=== PATIENT | male | born 1945 | race Caucasian/White ===

== ENCOUNTER → 2021-02-26 01:55 | Outpatient (CLI) | payer MEDICARE, SELFPAY ==
[2021-02-26 20:13] LABS: SARS-CoV-2 RNA PCR Negative
== END ==
PROVIDERS: PCP Internal Medicine; Visit Provider Internal Medicine Gastroenterology
DX: Z01.812 Encounter for preprocedural laboratory examination (principal); Z20.822 Contact with and (suspected) exposure to COVID-19
CPT/HCPCS: C9803; U0003; U0005

== ENCOUNTER 2021-03-01 01:51 | Day surgery (SDC) | payer MEDICARE, SELFPAY ==
[2021-02-16 12:16] VITALS: BMI 38.0
[2021-03-01 08:25] VITALS: BP 179/81; PULSE 63; RESP 18; TEMP 36.2; O2SAT 100; BMI 36.1
--- NOTE | 2021-03-01 08:32 | WPDANESEPPF ---
Anes - Initial Pre Proc Eval Procedure: Operation Date: 03/01/21 09:30 Proposed Procedures p Screening Colonoscopy - Abad Wise MD Date/Time: 03/01/21 08:32 Surgeon: Abad Wise MD Pre Op Diagnosis: hx of colon polyps Patient Data Age: 75 Gender: M Height: 1.8 m Weight: 117.5 kg Last Vital Signs Temp 36.2 C L 03/01/21 08:25 Pulse 63 03/01/21 08:25 Resp 18 03/01/21 08:25 BP 179/81 H 03/01/21 08:25 Pulse Ox 100 03/01/21 08:25 Allergies Allergy/AdvReac Type Severity Reaction Status Date / Time No Known Allergies Allergy Unknown Verified 03/01/21 08:20 Home Medications Medication Instructions Recorded Confirmed Type aspirin 81 mg tablet,delayed 81 mg PO DAILY 06/21/20 02/16/21 History release atorvastatin 80 mg tablet 80 mg PO HS 06/21/20 02/16/21 History carvedilol 25 mg tablet 25 mg PO QAM 06/21/20 02/16/21 History finasteride 5 mg tablet 5 mg PO DAILY 06/21/20 02/16/21 History furosemide 40 mg tablet 40 mg PO QAM 06/21/20 02/16/21 History insulin glargine 100 unit/mL (3 45 unit SUB-Q QPM 06/21/20 02/16/21 History mL) subcutaneous pen insulin lispro 100 unit/mL 5 unit SUB-Q BIDWMEAL 06/21/20 02/16/21 History subcutaneous cartridge metformin 1,000 mg tablet 1,000 mg PO BID 06/21/20 02/16/21 History amlodipine-benazepril 1 cap PO DAILY 02/16/21 02/16/21 History carvedilol 12.5 mg PO QPM 02/16/21 02/16/21 History empagliflozin [Jardiance] 25 mg PO DAILY 02/16/21 02/16/21 History ezetimibe 10 mg PO DAILY 02/16/21 02/16/21 History lorazepam 1 mg PO TID PRN 02/16/21 02/16/21 History Patient hx anesthesia problems: none Family hx anesthesia problems: none [facility] Past Medical History Medical History (Updated 03/01/21 @ 08:34 by Selvin Mcguire MD) Arthritis, lumbar spine Bilateral hip joint arthritis BPH (benign prostatic hyperplasia) Coronary artery disease Diabetes last A1C 03/21/20 6.4 Hyperlipidemia Hypertension JESSICA (obstructive sleep apnea) Osteoarthritis of left knee Skin cancer Trochanteric bursitis, left hip Surgical History Surgical History H/O knee surgery left knee arthroscopy; right knee replacement 2009 H/O shoulder surgery bilateral rotator cuff repairs Family History Family History Father Family history of glaucoma Cerebrovascular accident Mother Family history of cataracts Family history of diabetes mellitus in first degree relative Family history of hearing loss Sibling Family history of arthritis Family history of diabetes mellitus in first degree relative Social History Social History Smoking status: Never smoker Alcohol intake: current Substance use: never Living arrangements: with family Gender identity (if verbalized by the patient): Male Spiritual care concerns: No Anes - Eval Final PreProcedure Day of Procedure 03/01/21 08:32 Patient weight: obese Heart: regular rate and rhythm Lungs: clear to auscultation and normal air movement Airway: Mallampati scale class II Neurological: alert and oriented Last oral intake: >/= 8 hours ASA classification: III Emergent: no Anesthetic plan: proceed Anesthesia type and monitoring: general GIVS Informed Consent: The patient's anesthetic plan and its attendant risks and benefits were discussed with the patient/family/POA. Questions were solicited and answers provided to the satisfaction of the patient/family/POA.
[2021-03-01 08:39] LABS: Glucose Point of Care 95 (65-105)
[2021-03-01] MEDS: LACTATED RINGERS 1,000 ML 150 ML IV CONT (08:51)
--- NOTE | 2021-03-01 08:52 | PM.HPGS ---
History of Present Illness History of Present Illness Consent: Risks, benefits, and alternatives have been discussed and questions answered. Patient agrees to proceed with procedure. Chief complaint: hx of colon polyps Narrative: Hans Cummings Jr. is a 75 year old male . He is here for colon cancer screening. He has had polyps removed in the past Review of Systems Review of Systems: All systems reviewed & are unremarkable except as noted in HPI and below PMFSH Past Medical History Medical History Arthritis, lumbar spine Bilateral hip joint arthritis BPH (benign prostatic hyperplasia) Coronary artery disease Diabetes last A1C 03/21/20 6.4 Hyperlipidemia Hypertension JESSICA (obstructive sleep apnea) Osteoarthritis of left knee Skin cancer Trochanteric bursitis, left hip Surgical History Surgical History H/O knee surgery left knee arthroscopy; right knee replacement 2009 H/O shoulder surgery bilateral rotator cuff repairs Family History Family History Father Family history of glaucoma Cerebrovascular accident Mother Family history of cataracts Family history of diabetes mellitus in first degree relative Family history of hearing loss Sibling Family history of arthritis Family history of diabetes mellitus in first degree relative Social History Social History Smoking status: Never smoker Alcohol intake: current Substance use: never Living arrangements: with family Gender identity (if verbalized by the patient): Male Spiritual care concerns: No Meds Home Medications and Allergies Home Medications Medication Instructions Recorded Confirmed Type aspirin 81 mg tablet,delayed 81 mg PO DAILY 06/21/20 02/16/21 History release atorvastatin 80 mg tablet 80 mg PO HS 06/21/20 02/16/21 History carvedilol 25 mg tablet 25 mg PO QAM 06/21/20 02/16/21 History finasteride 5 mg tablet 5 mg PO DAILY 06/21/20 02/16/21 History furosemide 40 mg tablet 40 mg PO QAM 06/21/20 02/16/21 History insulin glargine 100 unit/mL (3 45 unit SUB-Q QPM 06/21/20 02/16/21 History mL) subcutaneous pen insulin lispro 100 unit/mL 5 unit SUB-Q BIDWMEAL 06/21/20 02/16/21 History subcutaneous cartridge metformin 1,000 mg tablet 1,000 mg PO BID 06/21/20 02/16/21 History amlodipine-benazepril 1 cap PO DAILY 02/16/21 02/16/21 History carvedilol 12.5 mg PO QPM 02/16/21 02/16/21 History empagliflozin [Jardiance] 25 mg PO DAILY 02/16/21 02/16/21 History ezetimibe 10 mg PO DAILY 02/16/21 02/16/21 History lorazepam 1 mg PO TID PRN 02/16/21 02/16/21 History Allergies Allergy/AdvReac Type Severity Reaction Status Date / Time No Known Allergies Allergy Unknown Verified 03/01/21 08:20 Vital Signs Vital Signs - 24 hr 03/01/21 08:25 Temperature 36.2 C L Pulse Rate 63 Respiratory Rate 18 Blood Pressure 179/81 H Pulse Oximetry 100 Exam Const: General: alert Orientation/consciousness: patient oriented x3 Resp: Auscultation: clear to auscultation bilaterally Cardio: Rhythm: regular rhythm GI: GI Palp: Yes Soft to palpation and No Tenderness to palpation present (GI) Neuro: General: patient oriented x3 Assessment and Plan Assessment and plan (1) Colon cancer screening: Code(s): Z12.11 - Encounter for screening for malignant neoplasm of colon Status: Acute Assessment and Plan: Colonoscopy with possible biopsy or polypectomy or cautery or injection of substances.
[2021-03-01 09:36] VITALS: BP 120/65; PULSE 41; RESP 18; O2SAT 97
[2021-03-01 09:46] VITALS: BP 141/71; PULSE 55; RESP 15; O2SAT 97
[2021-03-01 09:55] LABS: Glucose Point of Care 80 (65-105)
[2021-03-01 09:56] VITALS: BP 127/66; PULSE 51; RESP 22; O2SAT 97
== END 2021-03-01 10:10 | disposition home or self-care (01) ==
PROVIDERS: PCP Internal Medicine; Visit Provider Internal Medicine Gastroenterology
PROC: 0DJD8ZZ Inspection of Lower Intestinal Tract, Via Natural or Artificial Opening Endoscopic (ICD-10-PCS; CPT 45378; principal; 2021-03-01 09:30)
DX: Z12.11 Encounter for screening for malignant neoplasm of colon (principal); K62.1 Rectal polyp; K57.30 Diverticulosis of large intestine without perforation or abscess without bleeding; I10 Essential (primary) hypertension; I25.10 Atherosclerotic heart disease of native coronary artery without angina pectoris; E78.5 Hyperlipidemia, unspecified; E11.9 Type 2 diabetes mellitus without complications; G47.33 Obstructive sleep apnea (adult) (pediatric); N40.0 Benign prostatic hyperplasia without lower urinary tract symptoms; Z79.84 Long term (current) use of oral hypoglycemic drugs; Z79.4 Long term (current) use of insulin; E66.9 Obesity, unspecified; Z68.36 Body mass index [BMI] 36.0-36.9, adult
CPT/HCPCS: 45380; 88305; C9803; J2704; J7120; U0003; U0005

== ENCOUNTER → 2023-04-11 08:15 | Outpatient (CLI) | payer MEDICARE, SELFPAY ==
--- NOTE | ~2023-04-11 | MR_ITS ---
MRI of the lumbar spine Clinical History: Back pain Technique: Axial T2-weighted images, and sagittal T1-weighted, T2-weighted, and T2 fat-sat images wer e acquired. Findings: No fracture identified. 8 mm anterolisthesis of L4 over L5 is present. No suspicious bone m arrow signal abnormality seen. At L1-L2, there is no disc bulge or herniation. There is mild facet joint hypertrophy. No spinal jayla l stenosis or neural foraminal narrowing. At L2-L3, there is minimal disc bulge and mild facet arthropathy. No spinal canal stenosis or neural foraminal narrowing. At L3-L4, there is mild disc bulge and mild facet arthropathy. There is moderate thecal sac compressi on, predominantly due to prominent epidural fat. Bilateral neural foramina are preserved. At L4-L5, disc bulge/uncovering and severe facet arthropathy result in severe spinal canal stenosis/t hecal sac compression. There is severe left neural foraminal narrowing. There is minimal right neural foraminal narrowing. At L5-S1, there is left foraminal disc bulge. There is mild facet arthropathy. No spinal canal stenos is. Bilateral neural foramina are preserved. Paravertebral soft tissues are unremarkable. Impression: Severe degenerative spondylosis at L4-L5, as detailed above. Moderate thecal sac compression L3-4 which is predominantly related to prominent epidural fat rather than degenerative change. Additional mild degenerative changes, as above. Reviewed, dictated and finalized at [facility]. Impression: Severe degenerative spondylosis at L4-L5, as detailed above. Moderate thecal sac compression L3-4 which is predominantly related to prominen t epidural fat rather than degenerative change. Additional mild degenerative changes, as above.
== END ==
PROVIDERS: PCP Internal Medicine; Visit Provider Internal Medicine
DX: M47.896 Other spondylosis, lumbar region (principal)
CPT/HCPCS: 72148

== ENCOUNTER → 2023-07-31 10:37 | Outpatient (CLI) | payer MEDICARE, SELFPAY ==
--- NOTE | ~2023-07-31 | XR_ITS ---
EXAMINATION: XR lumbar spine min 4V DATE: 07/31/2023 11:11 INDICATION: Spondylolisthesis, low back pain TECHNIQUE: Anteroposterior and lateral in neutral, flexion and extension views of the lumbar spine, a nd cone-down lateral view of the lumbosacral junction were obtained. COMPARISON: MRI, 04/11/2023 FINDINGS: There are 8 mm of anterolisthesis of L4 on L5. No hypermobility is present with flexion or extension. There is moderate loss of intervertebral disc space height at L4-5 and mild loss of interv ertebral disc space height throughout the remainder of the lumbar spine. The vertebral body heights a re maintained. There is no fracture. Small degenerative osteophytes project from the anterior endplat es of multiple vertebral bodies. Calcified atherosclerosis is noted. IMPRESSION: 1. Unchanged severe lumbar spondylosis at L4-5. Reviewed, dictated and finalized at location [facility].
== END ==
PROVIDERS: PCP Neurological Surgery; Visit Provider Neurological Surgery
DX: M43.16 Spondylolisthesis, lumbar region (principal); M47.816 Spondylosis without myelopathy or radiculopathy, lumbar region
CPT/HCPCS: 72110

== ENCOUNTER 2025-06-10 07:40 | Outpatient (CLI) | payer MEDICARE, SELFPAY ==
--- NOTE | ~2025-06-10 | MR_ITS ---
MRI of the lumbar spine Clinical History: Spinal stenosis Technique: Axial T2-weighted images, and sagittal T1-weighted, T2-weighted, and T2 fat-sat images wer e acquired. COMPARISON: 04/11/2023 Findings: Status post interval posterior and interbody fusion from L4 to L5. No acute fracture. There is underlying 7 mm anterolisthesis of L4 over L5. There is probable nonspecific amorphous marrow clementina ma throughout the L4 and L5 vertebral bodies, presumably reactive. At L1-L2, there is no disc bulge or herniation. There is mild facet hypertrophy. No spinal canal sten osis or neural foraminal narrowing. At L2-L3, there is mild disc bulge with mild facet arthropathy. No central canal stenosis or neural f oraminal narrowing. L3-L4, there is mild to moderate degenerative disc narrowing. There is diffuse disc bulge with modera te facet arthropathy. There is severe spinal canal stenosis/thecal sac compression, with focally prom inent posterior epidural fat also present. There is moderate to severe right neural foraminal narrowi ng, and moderate left neural foraminal narrowing. At L4-L5, there is posterior decompression. No spinal canal stenosis. There is moderate left neural f oraminal narrowing. Right neural foramen preserved. At L5-S1, there is mild disc bulge and moderate facet arthropathy. No central canal stenosis or defin ite neural foraminal narrowing. Probable postoperative seroma in the posterior paravertebral soft tissues at the L4-L5 level with mul tiple septations measuring 3.3 x 1.9 x 1.7 cm. Impression: Interval posterior and interbody fusion from L4 to L5 with underlying 7 mm anterolisthesis of L4 over L5. Severe degenerative spondylosis at L3-L4, as detailed above. 3.3 x 1.9 x 1.7 cm postoperative seroma in the posterior paravertebral soft tissues at the L4-L5 leve l. Reviewed, dictated and finalized at location . Impression: Interval posterior and interbody fusion from L4 to L5 with underlying 7 mm ante rolisthesis of L4 over L5. Severe degenerative spondylosis at L3-L4, as detailed above. 3.3 x 1.9 x 1.7 cm postoperative seroma in the posterior paravertebral soft tis sues at the L4-L5 level.
--- OUTSIDE RECORDS SUMMARY | 2025-06-10 07:45 | XMS_ITS | Data Portability ---
Author Organization [place] [facility] [employer], Main Office Address [address] [place] [address] Assessment No assessment recorded. Plan of Treatment Reminders Order Date Submit Date Provider Last Modified By Organization Details Last Modified Time Details Appointments None recorded. Lab vitamin B12 + folate, serum or blood 025 025 [email or web address] [facility], [address], [address] Gallardo, [place], [address], 5 12:12:52 HbA1c (hemoglob in A1c), blood 025 025 [facility], [address], [address] Gallardo, [place], [address], 5 12:12:52 lipid panel, serum 025 025 [facility], [address], [address] Gallardo, [place], [address], 5 12:12:51 CMP, serum or plasma 025 025 [email or web address] [facility], [address], [place], [address], 5 12:12:51 CBC w/ auto diff 025 025 CURLY [facility], [address], [place], [address], 5 11:55:56 HbA1c (hemoglob in A1c), blood 025 025 [email or web address] [facility], [address], [address]ardo, [place], [address], 5 13:52:41 microalbu min, urine 025 [facility], [address], [address]ardo, [place], [address], 5 13:59:59 lipid panel, serum 025 [facility], [address], [address]ardo, [place], [address], 5 13:07:58 CMP, serum or plasma 025 [facility], [address], [address]ardo, [place], [address], 5 13:08:02 CBC w/ auto diff 025 [facility], [address], [address]ardo, [place], [address], 5 12:58:27 HbA1c (hemoglob in A1c), blood 024 [facility], [address], [address]ardo, [place], [address], 4 09:09:42 lipid panel, serum 024 [facility], [address], [address]ardo, [place], [address], 4 09:09:40 PSA, serum or plasma 024 [facility], [address], [address]ardo, [place], [address], 4 09:09:41 Referral None recorded. Procedures None recorded. Surgeries None recorded. Imaging None recorded. Medication Orders None recorded. Patient TargetsNo targets recorded. Patient Instructions Encounter Date Encounter Id Patient Instructions Last Modified By Organization Details Last Modified Time 03/24/2024 [id number] Follow-up hypertension, hyperlipidemia, type 2 diabetes and obesity class one all clinically stable. Will continue on current Rx. Will check a lipid panel and hemoglobin A1c. Also needs a PSA done. Otherwise is doing well at this time will continue on current Rx and follow-up in four months. FDA recommendations of a influenza, RSV, COVID, pneumococcal immunizations strongly advised. Next Appointment: 4 Months Approximate Date: 07/22/2024 Portions of the record may have been created with voice recognition software. Occasional wrong-word or [id number] substitutions may have occurred due to the inherent limitations of voice recognition software. Read the chart carefully and recognize, using context, where substitutions have occurred. Not available 03/24/2024 11:09:34 04/21/2024 [id number] Soft tissue trau ma the left shoulder and left ribcage. This time since the patient has had shown progressive improvement will continue observation. Instructed to let us know if the pain gets worse or any acute onset of any shortness of breath etc.. Keep Appointment: Fri 10:20 AM [place] Portions of the record may have been created with voice recognition software. Occasional wrong-word or ajezz-u-czfo substitutions may have occurred due to the inherent limitations of voice recognition software. Read the chart carefully and recognize, using context, where substitutions have occurred. [email or web address] Not available 04/21/2024 15:46:36 07/28/2024 [id number] dementia rating scale-2* [email or web address] Not available 07/28/2024 11:29:34 alcohol misuse* [email or web address] Not available 07/28/2024 11:29:34 depression screening* [email or web address] Not available 07/28/2024 11:29:34 Timed Up and Go test (TUG)* [email or web address] Not available 07/28/2024 11:29:34 multi-dimensiona l health assessment questionnaire* [email or web address] Not available 07/28/2024 11:29:34 Personalized a lt Plan and Screening Recommendations Advance Directives - Do you have one? Yes Advance Directives - Do we have your advance directive on file in your health record? Primary Prevention/Interven tion (prevents or decreases the chance of common diseases from occurring) Smoking Risk: Non Smoker Alcohol Misuse Screening: Negative Weight: Overweight try to lose 10% of your body weight Physical activity: Need more exercise/physical activity Nutrition: Average Eat heart healthy diet Fall Risk (screened today): Intermediate Recommend regular use of cane or walker Vaccines Pneumococcal: No further needed Influenza: Your next one in the fall of this year Chronic Disease Risks Stroke: Intermediate Risk Active diagnosis, Continue current treatment plan Heart Attack: Intermediate Risk Active diagnosis, Continue current treatment plan Clogging of the Arteries: Intermediate Risk Active diagnosis, Continue current treatment plan Diabetes: Intermediate Risk Active diagnosis, Continue current treatment plan Secondary Prevention/Interven tion (detects treatable diseases before they may cause symptoms, disability, or ) Prostate Cancer Screening: up to date Colon Cancer Screening: Colonoscopy due 2025 Date Screening Last Performed: _2020___ Eye Disease Screening: Your next exam in: goes every 2 yrs Dementia Risk: Low I have no recommendations Depression Screening: Negative I have no recommendations [email or web address] Not available 07/28/2024 11:22:36 Medicare wellnes s evaluation risk assessment stable. Follow-up for essential hypertension, hyperlipidemia, type 2 diabetes and history of colon polyps. Also obesity class one all clinically stable last hemoglobin A1c just done at [facility] was 6.8. Overall seems to be doing well. No interval complaints any new problems. Does not need any blood drawn at this time. Will continue on current Rx and follow-up in four months. Next Appointment: 4 Months Approximate Date: 11/25/2024 Portions of the record may have been created with voice recognition software. Occasional wrong-word or sjmti-f-aodo substitutions may have occurred due to the inherent limitations of voice recognition software. Read the chart carefully and recognize, using context, where substitutions have occurred. [email or web address] Not available 07/28/2024 11:29:10 12/22/2024 [id number] Essential hypertension, hyperlipidemia, type 2 diabetes, sleep apnea and obesity class one. Check blood work consisting of CBC, CMP, lipid and hemoglobin A1c level. Has had some increase in musculoskeletal complaints both in hip and back pain. Instructed to let us know if this continues to increase may need orthopedic referral particularly for the hip pain. Continue on current Rx follow-up four months Follow Up: 4 Months Approximate Date: 04/21/2025 Portions of the record may have been created with voice recognition software. Occasional wrong-word or dfmys-s-anfp substitutions may have occurred due to the inherent limitations of voice recognition software. Read the chart carefully and recognize, using context, where substitutions have occurred. Created: Jaiden Andrea M.D. 12.22.2024 10:14 AM [email or web address] Not available 12/22/2024 11:14:39 04/27/2025 [id number] Essential hypertension, hypercholesterolemi a, type 2 diabetes, diabetic peripheral neuropathy and obesity class one. Plan is check blood work consisting of CBC, CMP, lipid and hemoglobin A1c level. Will also check a PSA. Will set up with Urology for the urinary incontinence. Will also set up for physical therapy for gait training and balance instruction. Additional Orders - Directives - Recommendations 1. Urology consult for urinary incontinence 2. Set up for MRI of the lumbar spine without contrast for spinal stenosis and urinary incontinence. 3. Additional Orders - Directives - Recommendations 1. Physical therapy for gait training and balance therapy. Secondary to peripheral neuropathy Follow Up: 4 Months Approximate Date: 08/25/2025 Portions of record are template driven. When necessary additional context will be provided. Additionally some portions have been created with voice recognition software. Occasional wrong-word or ptqcq-s-zpya substitutions may have occurred due to the inherent limitations of voice recognition software. Read the chart carefully and recognize, using context, where substitutions may have occurred. Created: Jaiden Andrea M.D. 04.27.2025 10:18 AM [email or web address] Not available 04/27/2025 11:18:57 Reason for Referral None Reported. Results Created Date Observation Date Name Description Value Unit Range Abnormal Flag Note LastModifiedBy Organization Detail LastModifiedTime 03/31/2004/01/2024 LIPID PANEL , STAND LEXX cholesterol, total 92 mg/dL <200 normal Not Available [facility] [address] [place], [address], 04/01/2024 09:09:40 03/31/20 24 04/01/2024 LIPID PANEL , STAND LEXX HDL cholesterol 43 mg/dL > or = 40 normal Not Available [facility] [address] [facility] [place], [address], 04/01/2024 09:09:40 03/31/20 24 04/01/2024 LIPID PANEL , STAND LEXX triglyceride s 58 mg/dL <150 normal Not Available [address], [address], 04/01/2024 09:09:40 03/31/20 24 04/01/2024 LIPID PANEL , STAND LEXX LDL-choleste rol 36 mg/dL _(travis c) normal Refer ence range : <100 Christian able range <100 mg/dL for prima ry preve ntion ; <70 mg/dL for patie nts with CHD or diabe tic patie nts with > or = 2 CHD risk facto rs. LDL-C is now calcu lated using the Nano n-Hop kins calcu tomi n, which is a valid ated novel metho d provi ding lavon r accur acy than the Fried fuentes equat ion in the estim ation of LDL-C . Nano sheehan SS et al. BAL. 2013; 310(1 9): 2061- 2068 (http ://ed ucati on.Qu ju[employer]. [employer]/f aq/FA Q164) Not Available [address], [address], 04/01/2024 09:09:40 03/31/20 24 04/01/2024 LIPID PANEL , STAND LEXX chol/HDLC ratio 2.1 (calc ) <5.0 normal Not Available [address], [address], 04/01/2024 09:09:40 03/31/20 24 04/01/2024 LIPID PANEL , STAND LEXX non HDL cholesterol 49 mg/dL _(travis c) <130 normal For patie nts with diabe alexis plus 1 major ASCVD risk facto r, treat ing to a non-H DL-C goal of <100 mg/dL (LDL- C of <70 mg/dL ) is consi dered a thera peuti c optio n. Not Available [address] [place], [address], 04/01/2024 09:09:40 03/31/20 24 04/01/2024 PSA, TOTAL PSA, total 0.14 NG/mL < or = 4.00 normal The total PSA value from this assay syste m is stand ardiz ed again st the WHO stand lexx. The test resul t will be appro ximat mabel 20% lower when srinivasan red to the equim olar- stand ardiz ed total PSA (Sierra man Coult er). Srinivasan rison of seria l PSA resul ts shoul d be inter prete d with this fact in mind. This test was perfo rmed using the Sieme ns chemi lumin escen t metho d. Value s obtai cookie from diffe rent assay metho ds canno t be used inter hodges eably . PSA level s, regar dless of value , shoul d not be inter prete d as absol oneida evide nce of the prese nce or absen ce of disea se. Not Available [address] [address] [place], [address], 04/01/2024 09:09:41 03/31/20 24 04/01/2024 HEMOG LOBIN A1C hemoglobin A1C 7.4 %_of_ total _HGB <5.7 high For someo ne witho ut known diabe alexis, a hemog lobin A1c value of 6.5% or great er indic ates that they may have diabe alexis and this shoul d be confi rmed with a follo w-up test. For someo ne with known diabe alexis, a value <7% indic ates that their diabe alexis is well contr olled and a value great er than or equal to 7% indic ates subop timal contr ol. A1c targe ts shoul d be indiv idual ized based on durat ion of diabe alexis, age, comor bid condi tions , and other consi derat ions. Curre ntly, no conse nsus exist s regar ding use of hemog lobin A1c for diagn osis of diabe alexis for child cher. This test was perfo rmed on the Indra quita c503 platf orm. Effec tive , a carroll figueredo in test platf orms from the [facility] Archi tect to the Indra quita c503 may have shift ed HbA1c resul ts srinivasan red to histo rical resul ts. Based on labor atory valid ation testi ng condu cted at [facility] , the [facility]ra platf orm relat rob to the Abbot t platf orm had an avera ge incre ase in HbA1c value of < or = 0.3%. This diffe rence is withi n accep akosua varia bilit y estab lishe d by [facility] Glyco hemog lobin Stand aamir ation Progr am. Note that not all indiv idual s will have had a shift in their resul ts and direc t srinivasan rison s betwe en histo rical and curre nt resul ts for testi ng condu cted on diffe rent platf orms is not recom lenka d. Not Available [facility] [address] [place], [address], 04/01/2024 09:09:42 12/28/19 25 12/28/2024 CBC/C OMPLE TE BLD COUNT W/DIF F white blood cells 8.1 x10'3 /uL 4.2-10 .8 Not Available [facility] (Lab) [address] [place], [address], 12/28/2024 12:58:27 12/28/19 25 12/28/2024 CBC/C OMPLE TE BLD COUNT W/DIF F red blood cells 5.10 x10'6 /uL 4.10-5 .80 Not Available [facility] (Lab) [address] [place], [address], 12/28/2024 12:58:27 12/28/19 25 12/28/2024 CBC/C OMPLE TE BLD COUNT W/DIF F hemoglobin 16.0 g/dL 13.2-1 7.0 Not Available [facility] (Lab) [address] [place], [address], 12/28/2024 12:58:27 12/28/19 25 12/28/2024 CBC/C OMPLE TE BLD COUNT W/DIF F hematocrit 47.6 % 39.3-5 0.0 Not Available [facility] (Lab) [address] [place], [address], 12/28/2024 12:58:27 12/28/19 25 12/28/2024 CBC/C OMPLE TE BLD COUNT W/DIF F mean red cell volume 93.3 fL 80.0-9 7.0 Not Available [facility] (Lab) [address] [place], [address], 12/28/2024 12:58:27 12/28/19 25 12/28/2024 CBC/C OMPLE TE BLD COUNT W/DIF F mean red cell hemoglobin 31.4 pg 27.0-3 3.0 Not Available [facility] (Lab) [address] [place], [address], 12/28/2024 12:58:27 12/28/19 25 12/28/2024 CBC/C OMPLE TE BLD COUNT W/DIF F mean RBC HGB concentratio n 33.6 g/dL 31.0-3 6.0 Not Available [facility] (Lab) [address] [place], [address], 12/28/2024 12:58:27 12/28/19 25 12/28/2024 CBC/C OMPLE TE BLD COUNT W/DIF F red cell distribution width 14.0 % 11.8-1 5.5 Not Available [facility] (Lab) [address] [place], [address], 12/28/2024 12:58:27 12/28/19 25 12/28/2024 CBC/C OMPLE TE BLD COUNT W/DIF F platelets 297 x10'3 /uL 150-40 0 Not Available [facility] (Lab) [address] [place], [address], 12/28/2024 12:58:27 12/28/19 25 12/28/2024 CBC/C OMPLE TE BLD COUNT W/DIF F mean platelet volume 12.5 fL 9.0-12 .4 high Not Available [facility] (Lab) [address] [place], [address], 12/28/2024 12:58:27 12/28/19 25 12/28/2024 CBC/C OMPLE TE BLD COUNT W/DIF F neutrophils 66.0 % 39.0-7 2.0 Not Available [facility] (Lab) [address] [place], [address], 12/28/2024 12:58:27 12/28/19 25 12/28/2024 CBC/C OMPLE TE BLD COUNT W/DIF F lymphocytes 20.8 % 16.0-4 7.0 Not Available [facility] (Lab) [address] [place], [address], 12/28/2024 12:58:27 12/28/19 25 12/28/2024 CBC/C OMPLE TE BLD COUNT W/DIF F monocytes 10.5 % 5.0-12 .0 Not Available [facility] (Lab) [address] [place], [address], 12/28/2024 12:58:27 12/28/19 25 12/28/2024 CBC/C OMPLE TE BLD COUNT W/DIF F eosinophils 1.9 % 1.0-7. 0 Not Available [facility] (Lab) [address] [place], [address], 12/28/2024 12:58:27 12/28/19 25 12/28/2024 CBC/C OMPLE TE BLD COUNT W/DIF F basophils 0.6 % 0.0-2. 0 Not Available [facility] (Lab) [address] [place], [address], 12/28/2024 12:58:27 12/28/19 25 12/28/2024 CBC/C OMPLE TE BLD COUNT W/DIF F immature granulocytes 0.2 % 0.00-0 .50 Not Available [facility] (Lab) [address] [place], [address], 12/28/2024 12:58:27 12/28/19 25 12/28/2024 CBC/C OMPLE TE BLD COUNT W/DIF F neutrophils, absolute count 5.31 x10'3 /uL 1.5-8. 0 Not Available [facility] (Lab) [address] [place], [address], 12/28/2024 12:58:27 12/28/19 25 12/28/2024 CBC/C OMPLE TE BLD COUNT W/DIF F lymphocytes, absolute count 1.68 x10'3 /uL 1.07-3 .43 Not Available [facility] (Lab) [address] [place], [address], 12/28/2024 12:58:27 12/28/19 25 12/28/2024 CBC/C OMPLE TE BLD COUNT W/DIF F monocytes, absolute count 0.85 x10'3 /uL 0.29-0 .99 Not Available [facility] (Lab) [address] [place], [address], 12/28/2024 12:58:27 12/28/19 25 12/28/2024 CBC/C OMPLE TE BLD COUNT W/DIF F eosinophils, absolute count 0.15 x10'3 /uL 0.02-0 .53 Not Available [facility] (Lab) [address] [place], [address], 12/28/2024 12:58:27 01/28/12/28/2024 CBC/C OMPLE TE BLD COUNT W/DIF F basophils, absolute count 0.05 x10'3 /uL 0.01-0 .08 Not Available [facility] (Lab) [address] [place], [address], 12/28/2024 12:58:27 12/28/19 25 12/28/2024 CBC/C OMPLE TE BLD COUNT W/DIF F immature granulocytes ,absolute 0.02 x10'3 /uL 0.00-0 .05 Not Available [facility] (Lab) [address] [place], [address], 12/28/2024 12:58:27 12/28/19 25 12/28/2024 CBC/C OMPLE TE BLD COUNT W/DIF F nucleated red blood cells 0.0 % -0 Not Available [facility] (Lab) [address] [place], [address], 12/28/2024 12:58:27 12/28/19 25 12/28/2024 CBC/C OMPLE TE BLD COUNT W/DIF F NRBC# 0.00 x10'3 /uL Not Available [facility] (Lab) [address] [place], [address], 12/28/2024 12:58:27 12/28/19 25 12/28/2024 LIPID PANEL cholesterol 91 mg/dL 140-19 9 low NIH MARANDA NSUS RECOM MENDA TION FOR JULIANA STERO L: ADULT CHILD LOW RISK: <200 <170 BORDE RLINE : <200- 239 ----- HIGH RISK: >240 >200 Not Available [facility] (Lab) [address] [place], [address], 12/28/2024 13:07:57 12/28/19 25 12/28/2024 LIPID PANEL triglyceride s 58 mg/dL 0-150 NIH MARANDA NSUS REPOR T RECOM MENDA TION FOR TRIGL YCERI THOE: ADULT CHILD LOW RISK: <150 ----- BODER LINE: 150-1 99 ----- HIGH RISK: >200 ----- Not Available [facility] (Lab) [address] [place], [address], 12/28/2024 13:07:57 12/28/19 25 12/28/2024 LIPID PANEL HDL cholesterol 47 mg/dL 40- Not Available [facility] (Lab) [address] [place], [address], 12/28/2024 13:07:57 12/28/19 25 12/28/2024 LIPID PANEL LDL cholesterol, calculated 32 mg/dL 0-130 NIH MARANDA NSUS REPOR T RECOM MENDA TIONS FOR LDL: ADULT CHILD LOW RISK <130 <110 (OPTI MAL LDL) <100 ----- BORDE RLINE : 130-1 59 ----- HIGH RISK: >160 >130 A TRIGL YCERI DE RESUL T >400 INVAL IDATE S THE CALCU LATIO N FOR LDL FRACT IONAT ION - THE LDL RESUL T WILL NOT BE REPOR AKOSUA. Not Available [facility] (Lab) [address] [place], [address], 12/28/2024 13:07:57 12/28/19 25 12/28/2024 COMPR EHENS ROB METAB OLIC PANEL sodium 140 mmol/ L 137-14 5 Not Available [facility] (Lab) [address] [place], [address], 12/28/2024 13:08:02 12/28/19 25 12/28/2024 COMPR EHENS ROB METAB OLIC PANEL potassium 4.4 mmol/ L 3.5-5. 1 Not Available [facility] (Lab) [address] [place], [address], 12/28/2024 13:08:02 12/28/19 25 12/28/2024 COMPR EHENS ROB METAB OLIC PANEL chloride 107 mmol/ L 98-107 Not Available [facility] (Lab) [address] [place], [address], 12/28/2024 13:08:02 12/28/19 25 12/28/2024 COMPR EHENS ROB METAB OLIC PANEL carbon dioxide 25 mmol/ L 22-30 Not Available [facility] (Lab) [address] [place], [address], 12/28/2024 13:08:02 12/28/19 25 12/28/2024 COMPR EHENS ROB METAB OLIC PANEL anion gap 12.4 mmol/ L 14-22 low Not Available [facility] (Lab) [address] [facility] [place], [address], 12/28/2024 13:08:02 12/28/19 25 12/28/2024 COMPR EHENS ROB METAB OLIC PANEL glucose 122 mg/dL 70-99 high Not Available [facility] (Lab) [address] [place], [address], 12/28/2024 13:08:02 12/28/19 25 12/28/2024 COMPR EHENS ROB METAB OLIC PANEL BUN 18 mg/dL 8-19 Not Available [facility] (Lab) [address] [place], [address], 12/28/2024 13:08:02 12/28/19 25 12/28/2024 COMPR EHENS ROB METAB OLIC PANEL creatinine 0.67 mg/dL 0.66-1 .25 Not Available [facility] (Lab) [address] [place], [address], 12/28/2024 13:08:02 12/28/19 25 12/28/2024 COMPR EHENS ROB METAB OLIC PANEL GFR >60 Refer ence Range : [place] ge GFR Healt hy Adult : >60 mL/mi n/1.7 3 m2 Chron ic Kidne y Disea se: 15-60 mL/mi n/1.7 3 m2 Kidne y Failu re: <15/m L/min /1.73 m2 www.n iddk. nih.g ov The MDRD study equat ion has not been valid ated in child cher <18 years of age; pregn ant women ; the elder ly >85 years of age; or in some racia l or ethni c subgr oups, such as Hispa nics. Outsi de the valid ated ashlyn eters , estim ated GFR is less accur ate, requi ring clini travis judgm ent on a case- by-ca se basis . Clini travis inter preta tion for other races and ages must be made by the clini paresh. The MDRD study equat ion has not been valid ated for the evalu ation of serum creat inine relat ed to nutri susan l statu s or medic ation usage . For perso ns <18 years of age, a pedia tric GFR calcu lator is avail able on the [facility] websi te: https ://miriam w.richard rodriguez.o rg/pr ofess ional s/kdo qi/gf r_cal culat or Not Available [facility] (Lab) [address] [place], [address], 12/28/2024 13:08:02 12/28/19 25 12/28/2024 COMPR EHENS ROB METAB OLIC PANEL alkaline phosphatase 69 U/L 38-126 Not Available [facility] (Lab) [address] [place], [address], 12/28/2024 13:08:02 12/28/19 25 12/28/2024 COMPR EHENS ROB METAB OLIC PANEL alanine aminotransfe rase 28 U/L 0-50 Not Available [facility] (Lab) [address] [place], [address], 12/28/2024 13:08:02 12/28/19 25 12/28/2024 COMPR EHENS ROB METAB OLIC PANEL aspartate aminotransfe rase 31 U/L 15-46 Not Available [facility] (Lab) [address] [place], [address], 12/28/2024 13:08:02 12/28/19 25 12/28/2024 COMPR EHENS ROB METAB OLIC PANEL bilirubin, total 0.80 mg/dL 0.20-1 .30 Not Available [facility] (Lab) [address] [place], [address], 12/28/2024 13:08:02 12/28/19 25 12/28/2024 COMPR EHENS ROB METAB OLIC PANEL calcium 9.3 mg/dL 8.4-10 .2 Not Available [facility] (Lab) [address] [place], [address], 12/28/2024 13:08:02 12/28/19 25 12/28/2024 COMPR EHENS ROB METAB OLIC PANEL total protein 6.8 g/dL 6.3-8. 2 Not Available [facility] (Lab) [address] [place], [address], 12/28/2024 13:08:02 12/28/19 25 12/28/2024 COMPR EHENS ROB METAB OLIC PANEL albumin 4.5 g/dL 3.0-4. 4 high Not Available [facility] (Lab) [address] [place], [address], 12/28/2024 13:08:02 12/28/19 25 12/28/2024 COMPR EHENS ROB METAB OLIC PANEL globulin 2.3 g/dL 2.6-4. 2 low Not Available [facility] (Lab) [address] [place], [address], 12/28/2024 13:08:02 12/28/19 25 12/28/2024 COMPR EHENS ROB METAB OLIC PANEL A/G ratio 2.0 ratio 1.0-2. 0 Not Available [facility] (Lab) [address] [place], [address], 12/28/2024 13:08:02 12/28/19 25 12/28/2024 MICRO ALBUM IN MEREDITHO M URINE microalbumin , urine 37.5 mg/L 0.0-16 .6 high Not Available [facility] (Lab) [address] [place], [address], 12/28/2024 13:59:58 12/28/19 25 12/28/2024 HEMOG LOBIN A1C HA1C 6.7 % 4.0-6. 0 high Diabe alexis Scree isaura Crite ronni: <5.7% Consi stent with absen ce of diabe alexis 5.7-6 .4% Consi stent with incre ased risk for diabe alexis (pred iabet es) >OR=6 .5% Consi stent with diabe alexis REFER ENCE: Diabe alexis Care 2016, 39(Rose ppl.1 ):s13 -s22 Not Available [facility] (Lab) [address] [place], [address], 12/28/2024 14:26:29 05/04/20 25 05/04/2025 CBC/C OMPLE TE BLD COUNT W/DIF F white blood cells 8.6 x10'3 /uL 4.2-10 .8 Not Available [facility] (Lab) [address] [place], [address], 05/04/2025 11:55:56 05/04/20 25 05/04/2025 CBC/C OMPLE TE BLD COUNT W/DIF F red blood cells 4.98 x10'6 /uL 4.10-5 .80 Not Available [facility] (Lab) [address] [place], [address], 05/04/2025 11:55:56 05/04/20 25 05/04/2025 CBC/C OMPLE TE BLD COUNT W/DIF F hemoglobin 15.2 g/dL 13.2-1 7.0 Not Available [facility] (Lab) [address] [place], [address], 05/04/2025 11:55:56 05/04/20 25 05/04/2025 CBC/C OMPLE TE BLD COUNT W/DIF F hematocrit 46.7 % 39.3-5 0.0 Not Available [facility] (Lab) [address] [place], [address], 05/04/2025 11:55:56 05/04/20 25 05/04/2025 CBC/C OMPLE TE BLD COUNT W/DIF F mean red cell volume 93.8 fL 80.0-9 7.0 Not Available [facility] (Lab) [address] [place], [address], 05/04/2025 11:55:56 05/04/20 25 05/04/2025 CBC/C OMPLE TE BLD COUNT W/DIF F mean red cell hemoglobin 30.5 pg 27.0-3 3.0 Not Available [facility] (Lab) [address] [place], [address], 05/04/2025 11:55:56 05/04/20 25 05/04/2025 CBC/C OMPLE TE BLD COUNT W/DIF F mean RBC HGB concentratio n 32.5 g/dL 31.0-3 6.0 Not Available [facility] (Lab) [address] [place], [address], 05/04/2025 11:55:56 05/04/20 25 05/04/2025 CBC/C OMPLE TE BLD COUNT W/DIF F red cell distribution width 14.6 % 11.8-1 5.5 Not Available [facility] (Lab) [address] [place], [address], 05/04/2025 11:55:56 05/04/20 25 05/04/2025 CBC/C OMPLE TE BLD COUNT W/DIF F platelets 310 x10'3 /uL 150-40 0 Not Available [facility] (Lab) [address] [place], [address], 05/04/2025 11:55:56 05/04/2005/04/2025 CBC/C OMPLE TE BLD COUNT W/DIF F mean platelet volume 12.6 fL 9.0-12 .4 high Not Available [facility] (Lab) [address] [place], [address], 05/04/2025 11:55:56 05/04/20 25 05/04/2025 CBC/C OMPLE TE BLD COUNT W/DIF F neutrophils 66.9 % 39.0-7 2.0 Not Available [facility] (Lab) [address] [place], [address], 05/04/2025 11:55:56 05/04/20 25 05/04/2025 CBC/C OMPLE TE BLD COUNT W/DIF F lymphocytes 21.1 % 16.0-4 7.0 Not Available [facility] (Lab) [address] [place], [address], 05/04/2025 11:55:56 05/04/2005/04/2025 CBC/C OMPLE TE BLD COUNT W/DIF F monocytes 9.4 % 5.0-12 .0 Not Available [facility] (Lab) [address] [place], [address], 05/04/2025 11:55:56 05/04/2005/04/2025 CBC/C OMPLE TE BLD COUNT W/DIF F eosinophils 1.4 % 1.0-7. 0 Not Available [facility] (Lab) [address] [place], [address], 05/04/2025 11:55:56 05/04/20 25 05/04/2025 CBC/C OMPLE TE BLD COUNT W/DIF F basophils 0.8 % 0.0-2. 0 Not Available [facility] (Lab) [address] [place], [address], 05/04/2025 11:55:56 05/04/20 25 05/04/2025 CBC/C OMPLE TE BLD COUNT W/DIF F immature granulocytes 0.4 % 0.00-0 .50 Not Available [facility] (Lab) [address] [place], [address], 05/04/2025 11:55:56 05/04/20 25 05/04/2025 CBC/C OMPLE TE BLD COUNT W/DIF F neutrophils, absolute count 5.73 x10'3 /uL 1.5-8. 0 Not Available [facility] (Lab) [address] [place], [address], 05/04/2025 11:55:56 05/04/20 25 05/04/2025 CBC/C OMPLE TE BLD COUNT W/DIF F lymphocytes, absolute count 1.80 x10'3 /uL 1.07-3 .43 Not Available [facility] (Lab) [address] [place], [address], 05/04/2025 11:55:56 05/04/20 25 05/04/2025 CBC/C OMPLE TE BLD COUNT W/DIF F monocytes, absolute count 0.80 x10'3 /uL 0.29-0 .99 Not Available [facility] (Lab) [address] [place], [address], 05/04/2025 11:55:56 05/04/20 25 05/04/2025 CBC/C OMPLE TE BLD COUNT W/DIF F eosinophils, absolute count 0.12 x10'3 /uL 0.02-0 .53 Not Available [facility] (Lab) [address] [place], [address], 05/04/2025 11:55:56 05/04/20 25 05/04/2025 CBC/C OMPLE TE BLD COUNT W/DIF F basophils, absolute count 0.07 x10'3 /uL 0.01-0 .08 Not Available [facility] (Lab) [address] [place], [address], 05/04/2025 11:55:56 05/04/20 25 05/04/2025 CBC/C OMPLE TE BLD COUNT W/DIF F immature granulocytes ,absolute 0.03 x10'3 /uL 0.00-0 .05 Not Available [facility] (Lab) [address] [place], [address], 05/04/2025 11:55:56 05/04/20 25 05/04/2025 CBC/C OMPLE TE BLD COUNT W/DIF F nucleated red blood cells 0.0 % -0 Not Available [facility] (Lab) [address] [place], [address], 05/04/2025 11:55:56 05/04/20 25 05/04/2025 CBC/C OMPLE TE BLD COUNT W/DIF F NRBC# 0.00 x10'3 /uL Not Available [facility] (Lab) [address] [place], [address], 05/04/2025 11:55:56 05/04/20 25 05/04/2025 LIPID PANEL cholesterol 85 mg/dL 140-19 9 low NIH MARANDA NSUS RECOM MENDA TION FOR JULIANA STERO L: ADULT CHILD LOW RISK: <200 <170 BORDE RLINE : <200- 239 ----- HIGH RISK: >240 >200 Not Available [facility] (Lab) [address] [place], [address], 05/04/2025 12:21:35 05/04/20 25 05/04/2025 LIPID PANEL triglyceride s 53 mg/dL 0-150 NIH MARANDA NSUS REPOR T RECOM MENDA TION FOR TRIGL YCERI THEO: ADULT CHILD LOW RISK: <150 ----- BODER LINE: 150-1 99 ----- HIGH RISK: >200 ----- Not Available [facility] (Lab) [address] [place], [address], 05/04/2025 12:21:35 05/04/20 25 05/04/2025 LIPID PANEL HDL cholesterol 43 mg/dL 40- Not Available [facility] (Lab) [address] [place], [address], 05/04/2025 12:21:35 05/04/20 25 05/04/2025 LIPID PANEL LDL cholesterol, calculated 31 mg/dL 0-130 NIH MARANDA NSUS REPOR T RECOM MENDA TIONS FOR LDL: ADULT CHILD LOW RISK <130 <110 (OPTI MAL LDL) <100 ----- BEADE RLINE : 130-1 59 ----- HIGH RISK: >160 >130 A TRIGL YCERI DE RESUL T >400 INVAL IDATE S THE CALCU LATIO N FOR LDL FRACT IONAT ION - THE LDL RESUL T WILL NOT BE REPOR AKOSUA. Not Available [facility] (Lab) [address] [place], [address], 05/04/2025 12:21:35 05/04/20 25 05/04/2025 COMPR EHENS ROB METAB OLIC PANEL sodium 139 mmol/ L 137-14 5 Not Available [facility] (Lab) [address] [place], [address], 05/04/2025 12:21:40 05/04/20 25 05/04/2025 COMPR EHENS ROB METAB OLIC PANEL potassium 4.2 mmol/ L 3.5-5. 1 Not Available [facility] (Lab) [address] [place], [address], 05/04/2025 12:21:40 05/04/20 25 05/04/2025 COMPR EHENS ROB METAB OLIC PANEL chloride 104 mmol/ L 98-107 Not Available [facility] (Lab) [address] [place], [address], 05/04/2025 12:21:40 05/04/20 25 05/04/2025 COMPR EHENS ROB METAB OLIC PANEL carbon dioxide 24 mmol/ L 22-30 Not Available [facility] (Lab) [address] [place], [address], 05/04/2025 12:21:40 05/04/20 25 05/04/2025 COMPR EHENS ROB METAB OLIC PANEL anion gap 15.2 mmol/ L 14-22 Not Available [facility] (Lab) [address] [place], [address], 05/04/2025 12:21:40 05/04/20 25 05/04/2025 COMPR EHENS ROB METAB OLIC PANEL glucose 136 mg/dL 70-99 high Not Available [facility] (Lab) [address] [place], [address], 05/04/2025 12:21:40 05/04/20 25 05/04/2025 COMPR EHENS ROB METAB OLIC PANEL BUN 20 mg/dL 8-19 high Not Available [facility] (Lab) [address] [place], [address], 05/04/2025 12:21:40 05/04/20 25 05/04/2025 COMPR EHENS ROB METAB OLIC PANEL creatinine 0.62 mg/dL 0.66-1 .25 low Not Available [facility] (Lab) [address] [place], [address], 05/04/2025 12:21:40 05/04/20 25 05/04/2025 COMPR EHENS ROB METAB OLIC PANEL GFR >60 Refer ence Range : [place] ge GFR Healt hy Adult : >60 mL/mi n/1.7 3 m2 Chron ic Kidne y Disea se: 15-60 mL/mi n/1.7 3 m2 Kidne y Failu re: <15/m L/min /1.73 m2 www.n iddk. nih.g ov The MDRD study equat ion has not been valid ated in child cher <18 years of age; pregn ant women ; the elder ly >85 years of age; or in some racia l or ethni c subgr oups, such as Hispa nics. Outsi de the valid ated ashlyn eters , estim ated GFR is less accur ate, requi ring clini travis judgm ent on a case- by-ca se basis . Clini travis inter preta tion for other races and ages must be made by the clini paresh. The MDRD study equat ion has not been valid ated for the evalu ation of serum creat inine relat ed to nutri susan l statu s or medic ation usage . For perso ns <18 years of age, a pedia tric GFR calcu lator is avail able on the [facility] websi te: https ://miriam castro.richard rodriguez.o rg/pr ofess ional s/kdo qi/gf r_cal culat or Not Available [facility] (Lab) [address] [place], [address], 05/04/2025 12:21:40 05/04/20 25 05/04/2025 COMPR EHENS ROB METAB OLIC PANEL alkaline phosphatase 85 U/L 38-126 Not Available [facility] (Lab) [address] [place], [address], 05/04/2025 12:21:40 05/04/20 25 05/04/2025 COMPR EHENS ROB METAB OLIC PANEL alanine aminotransfe rase 24 U/L 0-50 Not Available [facility] (Lab) [address] [place], [address], 05/04/2025 12:21:40 05/04/20 25 05/04/2025 COMPR EHENS ROB METAB OLIC PANEL aspartate aminotransfe rase 27 U/L 15-46 Not Available [facility] (Lab) [address] [place], [address], 05/04/2025 12:21:40 05/04/20 25 05/04/2025 COMPR EHENS ROB METAB OLIC PANEL bilirubin, total 0.90 mg/dL 0.20-1 .30 Not Available [facility] (Lab) [address] [place], [address], 05/04/2025 12:21:40 05/04/20 25 05/04/2025 COMPR EHENS ROB METAB OLIC PANEL calcium 9.7 mg/dL 8.4-10 .2 Not Available [facility] (Lab) [address] [place], [address], 05/04/2025 12:21:40 05/04/20 25 05/04/2025 COMPR EHENS ROB METAB OLIC PANEL total protein 6.8 g/dL 6.3-8. 2 Not Available [facility] (Lab) [address] [place], [address], 05/04/2025 12:21:40 05/04/20 25 05/04/2025 COMPR EHENS ROB METAB OLIC PANEL albumin 4.4 g/dL 3.0-4. 4 Not Available [facility] (Lab) [address] [place], [address], 05/04/2025 12:21:40 05/04/20 25 05/04/2025 COMPR EHENS ROB METAB OLIC PANEL globulin 2.4 g/dL 2.6-4. 2 low Not Available [facility] (Lab) [address] [place], [address], 05/04/2025 12:21:40 05/04/20 25 05/04/2025 COMPR EHENS ROB METAB OLIC PANEL A/G ratio 1.8 ratio 1.0-2. 0 Not Available [facility] (Lab) [address] [place], [address], 05/04/2025 12:21:40 05/04/20 25 05/04/2025 HEMOG LOBIN A1C HA1C 6.7 % 4.0-6. 0 high Diabe aelxis [place] isaura Crite ronni: <5.7% Consi stent with absen ce of diabe alexis 5.7-6 .4% Consi stent with incre ased risk for diabe alexis (pred iabet es) >OR=6 .5% Consi stent with diabe alexis REFER ENCE: Diabe alexis Care 2016, 39(Rose ppl.1 ):s13 -s22 Not Available [facility] (Lab) [address] [place], [address], 05/04/2025 13:17:40 05/04/20 25 05/04/2025 VITAM IN B12 (BRANDON DEBBIE ) vb12 282 pg/mL 239-93 1 Not Available [facility] (Lab) [address] [place], [address], 05/04/2025 13:22:39 05/04/20 25 05/04/2025 FOLAT E, SERUM /PLAS MA folate 6.21 NG/mL 2.76-2 0.0 Not Available [facility] (Lab) [address] [place], [address], 05/04/2025 13:22:41 Result Notes None recorded. Problems Name Problem SNOMED Code Status Onset Date Resolution Date Notes Provider Name and Address Organization Details Recorded Time Folliculit is 45351762 Active 2021 Not Available [facility] 3 09:16:16 Acute sinusitis 20518272 Active 2021 Not Available [facility] 3 09:16:16 Pure hyperchole sterolemia 473858192 Active Not Available [facility] 3 09:16:16 Low back pain 842145218 Active Not Available [facility] 3 09:16:16 Chest pain 46062838 Active Not Available [facility] 3 09:16:16 Disorder of prostate 57111740 Active 2021 Not Available [facility] 3 09:16:16 Furuncle 865398214 Active 2021 Not Available [facility] 3 09:16:16 History of polyp of colon 501201757 Active Not Available [facility] 3 09:16:17 Cervical radiculopa thy 79782039 Active Not Available [facility] 3 09:16:17 Sleep apnea 39977300 Active Not Available [facility] 3 09:16:17 Palpitatio ns 25043377 Active 2018 Not Available [facility] 3 09:16:17 Chronic low back pain 126430546 Active 2022 Magaly Jett CMA null, [place] [facility] 3 16:05:03 Anxiety 20615690 Active 2022 Jaiden Andrea MD [address], [address], [place], [address] , [place] [facility] 3 16:08:31 Lumbar radiculopa thy 527414111 Active 2022 Jaiden Andrea MD [address], [address], [place], [address] , [place] [facility] 3 11:03:31 Urinary tract infectious disease 99200619 Active 2022 Magaly Jett CMA null, [place] [facility] 3 12:08:33 Diarrhea 97097053 Active 2023 Jaiden Andrea MD [address], [address], [place], [address] , [place] [facility] 4 10:19:31 Obese class I 5434428058025 07 Active 2023 Jaiden Andrea MD [address], [address], [place], [address] , [place] [facility] 4 11:05:48 Type 2 diabetes mellitus 57646707 Active 2023 Jaiden Andrea MD [address], [address], [place], [address] , [place] [facility] 4 11:40:05 Rib pain 011694032 Active 2023 Magaly Jett CMA null, [facility] [email or web address] [facility] 4 12:11:46 Pain of left shoulder joint 0004861705028 9109 Active 2023 Jaiden Andrea MD [address] [facility] [facility], [place] [address], [place], [address] , [email or web address] [facility] 4 15:42:57 Anterior chest wall pain 238395284 Active 2023 Jaiden Andrea MD [address] [facility], [facility] [address], [place], [address] , [email or web address] [facility] 4 15:43:24 Essential hypertensi on 11919029 Active 2024 Jaiden Andrea MD [address] [facility], [address] [place] [address], [place], [address] , [email or web address] [facility] 5 11:08:21 Diabetic peripheral neuropathy 667562618 Active 2024 Jaiden Andrea MD [address] [facility], [facility] [address], [place], [address] , [email or web address] [facility] 5 11:08:52 Peripheral neuropathi c gait 637131524 Active 2024 Tessy figueroa, [facility] [email or web address] [facility] 5 11:27:10 Mixed urinary incontinen ce 820504151 Active 2024 Tessy figueroa [facility] [email or web address] [facility] 5 11:29:18 Spinal stenosis of lumbosacra l region 482381167 Active 2024 Tessy figueroa, [facility] 5 15:56:31 Notes:Some problems listed i n Documents: #[id number], #[id number] could not be added to this patient's chart. Please review these documents and add these problems to the patient's chart manually as needed. Problem Notes None recorded. Procedures Surgical History Date Name Laterality Status Provider Name and Address Organization Details Recorded Time Medicare Wellness CPT Code, subsequent completed Manju Bell RN [email or web address] [email or web address] [facility] 07/28/2024 11:16:21 Medicare Wellness CPT Code, subsequent completed Manju Bell RN [email or web address] [facility] 07/09/2023 11:54:30 Imaging Results None recorded. Procedure Notes None recorded. Medical Equipment None Reported. Medications Name Sig Start Date Stop Date Status Note LastModified by Organization Details LastModified Time amoxicill in 500 mg capsule TAKE 4 CAPSULES BY MOUTH 1 HOUR BEFORE DENTAL PROCEDUR E 03/24 completed Not Available Not Available Not Available Flomax 0.4 mg capsule Take 1 capsule every day by oral route. 05/06 completed Not Available Not Available Not Available furosemid e 40 mg tablet TAKE 1 TABLET DAILY 03/15 completed Not Available Not Available Not Available atorvasta tin 40 mg tablet TAKE 1 TABLET DAILY 08/16 completed Not Available Not Available Not Available silver sulfadiaz ine 1 % topical cream APPLY 1 APPLICAT ION ONTO THE RIGHT WRIST TWICE DAILY 04/27 completed Not Available Not Available Not Available atorvasta tin 80 mg tablet Take 1 tablet every day by oral route. 2019 active Not Available Not Available Not Avai lable carvedilo l 25 mg tablet Take 1 tablet twice a day by oral route. active Not Available Not Available No t Available doxycycli ne hyclate 100 mg capsule TAKE ONE CAPSULE BY MOUTH TWICE DAILY 09/11 completed Not Available Not Available Not Available ketoconaz ole 2 % shampoo USE TO WASH SCALP AT BEDTIME TWICE WEEKLY active Not Available Not Available No t Available clindamyc in HCl 300 mg capsule Take 1 capsule every 6 hours by oral route. active Not Available Not Available No t Available azithromy pankaj 250 mg tablet TAKE 2 TABLET EVERY DAY BY ORAL ROUTE FOR 1 DAY THEN ONE DAILY 04/27 completed Not Available Not Available Not Available aspirin 325 mg tablet Take 1 tablet every day by oral route. 2019 active Not Available Not Available Not Avai lable benzonata te 200 mg capsule TAKE 1 CAPSULE BY MOUTH THREE TIMES A DAY 04/27 completed Not Available Not Available Not Available hydrocodo ne 5 mg-acetam inophen 325 mg tablet TAKE 1 TABLET BY MOUTH EVERY 6 HOURS 04/27 completed Not Available Not Available Not Available promethaz ine 6.25 mg-codein e 10 mg/5 mL syrup Take 5 mL every 6 hours by oral route. 05/06 completed Not Available Not Available Not Available aspirin 81 mg tablet,de layed release Take 1 tablet every day by oral route. 08/16 completed Not Available Not Available Not Available amoxicill in 500 mg tablet TAKE 4 TABLETS BY MOUTH 1 HOUR BEFORE DENTAL PROCEDUR E 07/09 completed Not Available Not Available Not Available Amaryl 4 mg tablet one tablet am and half tablet pm 2012 active Not Available Not Available Not Avai lable Tessalon Perles 100 mg capsule Take 1 capsule 3 times a day by oral route. active Not Available Not Available No t Available alprazola m 0.25 mg tablet TAKE 1 TABLET 3 TIMES A DAY BY ORAL ROUTE. 09/08 completed Not Available Not Available Not Available methocarb berry 750 mg tablet TAKE 1 TABLET BY MOUTH THREE TIMES A DAY FOR 30 DAYS 04/27 completed Not Available Not Available Not Available econazole nitrate 1 % topical cream APPLY TO FEET TWICE DAILY 09/11 completed Not Available Not Available Not Available metformin 1,000 mg tablet Take 1 tablet twice a day by oral route. 2019 active Not Available Not Available Not Avai lable Proventil HFA 90 mcg/actua tion aerosol inhaler Inhale 2 puffs every 4 hours by inhalati on route. 08/16 completed Not Available Not Available Not Available mupirocin 2 % topical ointment APPLY TO SPOT TWICE DAILY 04/27 completed Not Available Not Available Not Available Levaquin 500 mg tablet Take 1 tablet every 24 hours by oral route. 01/16 completed Not Available Not Available Not Available lorazepam 1 mg tablet TAKE 1 TABLET BY MOUTH THREE TIMES A DAY NEEDED FOR ANXIETY active Not Available Not Available No t Available Hibiclens 4 % topical liquid WASH BODY THREE DAYS A WEEK DIRECTED 09/11 completed Not Available Not Available Not Available finasteri de 5 mg tablet Take 1 tablet every day by oral route. 2020 active Not Available Not Available Not Avai lable amoxicill in 875 mg-potass ium clavulana te 125 mg tablet Take 1 tablet every 12 hours by oral route. 03/12 completed Not Available Not Available Not Available Bactrim DS 800 mg-160 mg tablet Take 1 tablet every 12 hours by oral route. 03/24 completed Not Available Not Available Not Available Blood Glucose Test strips one touch ultra test strips test twice a day 01/16 completed Not Available Not Available Not Available Humalog U-100 Insulin 100 unit/mL subcutane ous cartridge Inject 12 units by subcutan eous route in the morning. 01/15 completed 12 units at noon and 16 in the evening Not Available Not Available Not Available ezetimibe 10 mg tablet TAKE 1 TABLET BY MOUTH EVERY DAY IN THE EVENING active Not Available Not Available No t Available azelaic acid 15 % topical gel APPLY EXTERNAL LY TO THE AFFECTED AREA TWICE DAILY 07/09 completed Not Available Not Available Not Available amlodipin e 10 mg-atorva statin 40 mg tablet once daily 01/16 completed Not Available Not Available Not Available Horizon Nasal Cpap System 08/16 completed Not Available Not Available Not Available Lotrel 10 mg-40 mg capsule Take 563976 capsules every day by oral route. 2020 active Not Available Not Available Not Avai lable BD Ultra-Fin e Original Pen Needle 29 gauge x 1/2 Take 1 needle every day by miscell. route at bedtime. 01/16 completed Not Available Not Available Not Available Lantus Solostar U-100 Insulin 100 unit/mL (3 mL) subcutane ous pen Inject 25 units every day by subcutan eous route at bedtime. active Not Available Not Available No t Available Humalog KwikPen Insulin sliding scale 12/22 completed Not Available Not Available Not Available Senexon-S 8.6 mg-50 mg tablet TAKE 1 TABLET BY MOUTH EVERY DAY 04/27 completed Not Available Not Available Not Available Bydureon 2 mg subcutane ous extended release suspensio n INJECT 2 MG ONCE BY SUBCUTAN EOUS ROUTE EVERY 7 DAYS 2012 active Not Available Not Available Not Avai lable Jardiance 25 mg tablet Take 1 tablet every day by oral route. 2019 active Not Available Not Available Not Avai lable Ozempic 1 mg/dose (2 mg/1.5 mL) subcutane ous pen injector INJECT 2 MG BY SUBCUTAN EOUS ROUTE ONCE WEEKLY ON THE SAME DAY OF EACHWEEK 04/27 completed Not Available Not Available Not Available Ozempic 2 mg/dose (8 mg/3 mL) subcutane ous pen injector INJECT 2 MG BY SUBCUTAN EOUS ROUTE ONCE WEEKLY ON THE SAME DAY OF EACHWEEK active Not Available Not Available No t Available Vitals Date Recorded Body height Body mass index (BMI) Body weight Heart rate Body temperature Oxygen saturation Oxygen saturation in Arterial blood by Pulse oximetry Systolic And Diastolic Provider Name and Address Organization Details Last Updated DateTime 5 180.34 cm 32.9 kg/m2 471964. 8 g 74 /min 97 [degF] 94 % 94 % 138/60 mm[Hg] Holli Mistry PA [employer] [facility] [employer] 5 11:02:04 Date Recorded Body height Body mass index (BMI) Body weight Heart rate Body temperature Oxygen saturation Oxygen saturation in Arterial blood by Pulse oximetry Systolic And Diastolic Provider Name and Address Organization Details Last Updated DateTime 4 180.34 cm 33.1 kg/m2 489747. 39 g 78 /min 97 [degF] 96 % 96 % 122/70 mm[Hg] Holli Mistry [employer] [facility] [employer] 4 10:59:44 Date Recorded Body height Body mass index (BMI) Body weight Heart rate Body temperature Oxygen saturation Oxygen saturation in Arterial blood by Pulse oximetry Systolic And Diastolic Provider Name and Address Organization Details Last Updated DateTime 4 180.34 cm 33.2 kg/m2 355353. 98 g 80 /min 98.1 [degF] 96 % 96 % 128/76 mm[Hg] ARNEL Pedroza [facility] [employer] [facility] 4 15:30:53 Date Recorded Body height Body mass index (BMI) Body weight Heart rate Body temperature Oxygen saturation Oxygen saturation in Arterial blood by Pulse oximetry Systolic And Diastolic Provider Name and Address Organization Details Last Updated DateTime 5 177.8 cm 33.5 kg/m2 554994. 82 g 76 /min 97 [degF] 96 % 96 % 122/70 mm[Hg] Holli Mistry [email or web address] [facility] 5 11:00:26 Date Recorded Body height Body mass index (BMI) Body weight Heart rate Body temperature Oxygen saturation Oxygen saturation in Arterial blood by Pulse oximetry Systolic And Diastolic Provider Name and Address Organization Details Last Updated DateTime 4 180.34 cm 32.6 kg/m2 170301. 61 g 79 /min 97.4 [degF] 96 % 96 % 116/72 mm[Hg] ARNEL Pedroza [facility] [email or web address] [facility] 4 11:12:10 Social History Question Answer Notes LastModified by Organizat ion Details LastModified Time Tobacco Smoking Status Never Smoker Not Available [facility] 01/29/2023 09:14:20 Do You Have An Advance Directive? Yes MIGRATION.[id number] Information not available 01/29/2023 Are You Blind Or Do You Have Difficulty Seeing? No MIGRATION.57102 99948 Information not available 01/29/2023 In The 14 Days Before Symptom Onset, Have You Had Close Contact With A Laboratory-confi rmed COVID-19 While That Case Was Ill? No MIGRATION.20222 98611 Information not available 01/29/2023 In The 14 Days Before Symptom Onset, Have You Had Close Contact With A Person Who Is Under Investigation For COVID-19 While That Person Was Ill? No MIGRATION.65458 11119 Information not available 01/29/2023 Are You Deaf Or Do You Have Serious Difficulty Hearing? Yes MIGRATION.51000 54929 Information not available 01/29/2023 What Type Of Diet Are You Following? REGULAR MIGRATION.56343 81506 Information not available 01/29/2023 Have There Been Any Changes To Your Family Or Social Situation? No [email or web address] Information not available 07/28/2024 What Is The Fluoride Status Of Your Home? Unknown MIGRATION.10280 02803 Information not available 01/29/2023 Do You Use Insect Repellent Routinely? No MIGRATION.04883 17975 Information not available 01/29/2023 Where Do You Live? [place]House MIGRATION.11967 13279 Information not available 01/29/2023 Are You Able To Care For Yourself? Yes [email or web address] Information not available 07/28/2024 Are You Blind Or Do Yo Have Difficulty Seeing? No [email or web address] Information not available 07/28/2024 Are You Deaf Or Do You Have Serious Difficulty Hearing? Yes [email or web address] Information not available 07/28/2024 Live Alone Of With Others? With Others [email or web address] Information not available 07/28/2024 Do You Have A Medical Power Of Zinc Skimmer? Yes MIGRATION.37866 99999 Information not available 01/29/2023 What Was The Date Of Your Most Recent Tobacco Screening? 07/28/2024 [email or web address] Information not available 07/28/2024 Do You Have Any Pets? Yes MIGRATION.32747 59548 Information not available 01/29/2023 What Is Your Relationship Status? MIGRATION.66949 88537 Information not available 01/29/2023 Do You Use Your Seat Belt Or Car Seat Routinely? Yes MIGRATION.06429 34490 Information not available 01/29/2023 Do You Have Smoke And Carbon Monoxide Detectors In Your Home? Yes MIGRATION.50611 54514 Information not available 01/29/2023 Are You Passively Exposed To Smoke? No MIGRATION.33292 57549 Information not available 01/29/2023 Do You Use Sunscreen Routinely? No MIGRATION.46122 28742 Information not available 01/29/2023 Have You Recently Traveled Abroad? No MIGRATION.85432 88224 Information not available 01/29/2023 Do You Have Difficulty Walking Or Climbing Stairs? Yes Hip Pain, Uses Cane [email or web address] Information not available 07/28/2024 Do You Have Any Dietary Restrictions? No MIGRATION.32783 59637 Information not available 01/29/2023 Sex: Unknown Functional Status Question Answer Note LastModified by Organizat ion Details LastModified Time What is your level of alcohol consumption? None MIGRATION.76687 79481 Information not available 01/29/2023 Do you have transportation difficulties? No MIGRATION.17798 16734 Information not available 01/29/2023 Are you able to walk? YESWOREST starting to use a cane MIGRATION.12085 30308 Information not available 01/29/2023 Do you have difficulty doing errands alone? No MIGRATION.11042 94483 Information not available 01/29/2023 Are you able to care for yourself? Yes MIGRATION.67231 70372 Information not available 01/29/2023 Do you have difficulty dressing or bathing? No MIGRATION.38691 35252 Information not available 01/29/2023 What is your exercise level? None MIGRATION.12930 25812 Information not available 01/29/2023 Mental Status Question Answer Note LastModified by Organizat ion Details LastModified Time Do you have difficulty concentrating, remembering or making decisions? No MIGRATION.[id number] Information not available 01/29/2023 Family History Nothing Reported Notes:Mother 94 yea rs old Father 73 years old 1 Sisters 1 Living Mother Hx HTN, DM, Dementiia Father Hx HTN, ICH Medical History Condition Response NERVE DISEASE N BLINDNESS N RHEUMATIC FEVER N KIDNEY STONES N BLADDER PROBLEMS N MRSA N OTHER # 1 N POLIO N LUNG DISEASE/DISORDER N HISTORY OF DRUG ABUSE N COPD N RADIATION / CHEMOTHERAPY N Other # 2 N BLOOD DISEASES N EAR OR HEARING PROBLEMS N MUMPS N SHINGLES N DEPRESSION (INCLUDING POST ) N BOWEL PROBLEMS N STROKE/TIA N ULCERS N BENIGN PROSTATIC HYPERPLASIA N MEASLES N HYPOTENSION N MYOCARDIAL INFARCTION N OBESITY N GERD/NAUSEA N ANEURYSM N URINARY/BLADDER/KIDNEY PROBLEMS N CORONARY ARTERY DISEASE (CAD) N ADDICTION CONCERNS N Impotence N ENDOMETRIOSIS N USE OF BLOOD THINNERS N SKIN PROBLEMS N GASTROINTESTINAL DISORDER N PERIPHERAL VASCULAR DISEASE N MUSCLE,JOINT OR BONE PROBLEMS N GASTROINTESTINAL BLEEDING N BLOOD CLOTS N ASTHMA N CATARACTS N ERECTILE DYSFUNCTION N VARICOSITIES N GI PROBLEMS N Low Testosterone N INFERTILITY N AIDS/HIV N CHEMOTHERAPY / RADIATION N LIVER DISEASE N MALE HYPOGONADISM N HYPERTENSION Y Deficiency N TOURETTE'S N ANXIETY DISORDER N BLOOD TRANSFUSION N ANEMIA/BLOOD DISORDER N CHRONIC EAR INFECTIONS N BRONCHITIS N TUBERCULOSIS N GLAUCOMA N FOOT PROBLEM N DIVERTICULITIS N SLEEP APNEA Y CHICKENPOX N INFECTIOUS DISEASE N PROSTATE N HEART ARRHYTHMIA N INSOMNIA N HIGH CHOLESTEROL / HYPERLIPIDEMIA Y HYPERTHYROIDISM N EYE PROBLEMS N EDEMA N CHRONIC PAIN SYNDROME N HYPOTHYROIDISM N CONSTIPATION N CAROTID BLOCKAGE N BACK / NECK PROBLEMS N HAVE YOU BEEN HOSPITALIZED OR SEEN IN [facility] IN THE PAST YEAR ? N ATHEROSCLEROSIS N BREAST PROBLEMS N DIALYSIS N ECZEMA N OSTEOPOROSIS N ARTHRITIS N NO SIGNIFICANT PAST MEDICAL HISTORY N APPENDICITIS N DIABETES, TYPE N BAD TEETH N ENT N HEARTBURN / REFLUX N AUTISM SPECTRUM DISORDER (ASD) N HEPATITIS / LIVER DISEASE N GOUT N SLEEP DISORDER N ALZHEIMER'S DISEASE N Brain Problems N HERPES N DEMENTIA N SEIZURES/EPILEPSY N HEADACHES/MIGRAINES N VASCULAR DISEASE N PACEMAKER N Blood Disorder N DIZZINESS N KIDNEY DISEASE N HEART DISEASE/HEART PROBLEMS N MULTIPLE SCLEROSIS N CARDIAC ARRHYTHMIA N CANCER: SPECIFY N Gall Stones N ATRIAL FIBRILLATION N PULMONARY EMBOLISM N AUTOIMMUNE DISEASE N Immunizations Vaccine Type Date Status Note Provider Nam e and Address Organization Details Recorded Time Influenza, split virus, trivalent, preservative 4 completed Not Available [facility] 01/29/2023 09:18:38 SARS-COV-2 (COVID-19) vaccine, UNSPECIFIED 1 completed Not Available [facility] 01/29/2023 09:18:38 SARS-COV-2 (COVID-19) vaccine, UNSPECIFIED 1 completed Not Available [facility] 01/29/2023 09:18:38 pneumococcal polysaccharide PPV23 2 completed Not Available [facility] 01/29/2023 09:18:38 Influenza, high-dose, quadrivalent, PF 2 completed Not Available [facility] 01/29/2023 09:18:38 Influenza, high-dose, quadrivalent, PF 1 completed Not Available [facility] 01/29/2023 09:18:38 Influenza, high-dose, trivalent, PF 8 completed Not Available [facility] 01/29/2023 09:18:38 Influenza, high-dose, trivalent, PF 6 completed Not Available [facility] 01/29/2023 09:18:39 Influenza, high-dose, trivalent, PF 7 completed Not Available [facility] 01/29/2023 09:18:39 Influenza, split virus, quadrivalent, preservative 5 completed Not Available [facility] 01/29/2023 09:18:39 Pneumococcal conjugate PCV 13 4 completed Not Available [facility] 01/29/2023 09:18:39 Past Encounters Encounter ID Performer Location Encounter Start Date Encounter Closed Date Diagnosis/Indication Diagnosis SNOMED-CT Code Diagnosis ICD10 Code Diagnosis Note [id number] Jaiden Andrea MD [facility] Internal Med [facility] [address] [facility] 24 [place] [address] 03/15/2021 00:00:00 03/15/2021 10:45:28 [id number] Jaiden Andrea MD [facility] [address] [place] [address] [address] 09/20/2021 00:00:00 09/20/2021 11:00:20 [id number] Jaiden Andrea MD [facility] [address] [place] [address] [address] 03/13/2022 00:00:00 03/13/2022 11:05:38 [id number] Jaiden Andrea MD [facility] [address] [place] [address] [address] 09/11/2022 00:00:00 09/11/2022 12:01:03 [id number] Jaiden Andrea MD [facility] [address] [place] [address] [address] 03/12/2023 11:11:32 03/12/2023 12:03:47 Benign essential hypertension 0865682 I10 Pure hypercholesterolemia 017574020 E78.00 Type 2 bladimir betes mellitus 68747616 E11.9 Low back pain 027354763 M54.50 Obesity 354186642 E66.9 [id number] Jaiden Andrea MD [facility] [place] [address] [address] 07/09/2023 11:12:32 07/09/2023 12:17:37 Adult health examination 993968775 Z00.00 Screening for disorder 011683250 Z13.9 Benign ess ential hypertension 5143091 I10 Pure hypercholesterolemia 016603843 E78.00 Type 2 bladimir betes mellitus 00453102 E11.9 [id number] Jaiden Andrea MD [facility] [place] [address] [address] 09/24/2023 10:43:10 09/24/2023 11:14:24 Benign essential hypertension 9742451 I10 Pure hypercholesterolemia 336364562 E78.00 Type 2 bladimir betes mellitus 20289032 E11.9 Sleep apnea 56749594 G47 .30 Lumbar radiculopathy 128 452850 M54.16 [id number] Jaiden Andrea MD [facility] Internal Med [facility] [address] [address] 11/19/2023 10:26:48 11/19/2023 11:18:39 Benign essential hypertension 4300734 I10 Pure hypercholesterolemia 422242661 E78.00 Anxiety 02946659 F41.9 Type 2 bladimir betes mellitus 92267512 E11.9 Lumbar radiculopathy 128 744347 M54.16 [id number] Jaiden Andrea MD [facility] Internal Med [place] [address] [address] 03/24/2024 10:47:53 03/24/2024 11:15:18 Benign essential hypertension 7266868 I10 Pure hypercholesterolemia 610366080 E78.00 Type 2 bladimir betes mellitus 92634085 E11.9 Obese class I 0938773660 38547 E66.9 Disorder of prostate 302 54095 N42.9 [id number] Jaiden Andrea MD [facility] Internal Med [address] [address] 04/21/2024 15:21:44 04/21/2024 15:49:36 Pain of left shoulder joint 0424154248 0367318 M25.512 Anterior c hest wall pain 923393011 R07.89 [id number] Jaiden Andrea MD [facility] Internal Med [facility] [address] [address] 07/28/2024 11:02:46 07/28/2024 11:33:06 Adult health examination 087643778 Z00.00 Screening for disorder 075963420 Z13.9 Benign ess ential hypertension 3915028 I10 Pure hypercholesterolemia 516436334 E78.00 Type 2 bladimir betes mellitus 32475171 E11.9 History of polyp of colon 395927756 Z86.010 Obese class I 5046139088 74712 E66.9 [id number] Jaiden Andrea MD [facility] Internal Med [facility] [address] [address] 12/22/2024 10:36:40 12/22/2024 11:20:14 Benign essential hypertension 4326059 I10 Pure hypercholesterolemia 437014731 E78.00 Type 2 bladimir betes mellitus 29870774 E11.9 Sleep apnea 34671694 G47 .30 Obese class I 4658285930 48942 E66.9 [id number] Jaiden Andrea MD [facility] Internal Med [facility] [address] [facility], [place] [address] 04/27/2025 10:55:38 04/27/2025 11:25:26 Essential hypertension 61847334 I10 Pure hypercholesterolemia 055253775 E78.00 Type 2 bladimir betes mellitus 24893266 E11.9 Diabetic p eripheral neuropathy 019749546 E11.42 Obese class I 7632692175 45184 E66.9 Health Concerns Section Related Observation LastModified by Organization Detai ls LastModified Time None Recorded Concern Status LastModified by Organization Details LastModified Time None Recorded Advance Directives Directive Y: Payers Insurance Date Sequence Insurance Name Policy Number Policy Juarez Covered Member ID Juarez Member ID Guarantor Name 04/27/2025 1 [employer] (MEDICARE REPLACEMENT /ADVANTAGE - PPO) [id number] 1 Hans Cummings [id number] Hans Cummings Notes Date Note Type Note Provider Name and Address Organization Details Recorded Time 03/24/20 24 text/htm l Patient Name: Hans CummingsDate Of Service: Friday ( 03.24.2024 ): 1945 Age: 78 Vital Signs:Blood Pressure: Sitting Rt. Arm 122/70Pulse: Sitting 78 /min and RegularRespiratory Rate: 12Height 71 in or 1.8 mWeight 237 lb or 107.5 kgBMI 33.1Temperature: 97 F or 36.1 CPulse Oximetry: 96 % at rest on no oxygen Chief Complaint: Addressed in HPI Problems or conditions discussed in the HPI were the only ones reviewed during the encounter.Only social and family history addressed in the HPI were reviewed during this encounter. Attendant(s): NoneConstitutional and Systemic Symptoms:none Medication Reconciliation: from medication list. Ehtayyucdpj41/12/2023: MRI of the lumbar spine without contrast demonstrates severe changes L4-L5 resulting in severe spinal canal stenosis and thecal sac compression. There is severe left neural foraminal narrowing at L3-L4 there is some moderate thecal sac compression due to epidural fat. Will need a neurosurgeon consult. History of Present Illness #1. Essential Hypertension: Stage: Stage I Interval Neurological Complaints no headaches, dizziness, weakness, visual changes, ataxia, aphasia and apraxia. No shortness of breath, orthopnea or cardiovascular symptoms. No other symptoms related to end organ damage. Pressure has been under excellent control. Currently normal. No other end organ symptoms or findings. Therapy reviewed regarding management of hypertension and includes salt restriction and Coreg and Lotrel. #2. Type II Hypercholesterolaemia: Currently taking medication and tolerating well. No interval complaints of any muscle pain or arthralgia. No significant liver changes with medications. Last lipid panel: excellent control. Therapy reviewed regarding treatment of cholesterol management and include diet and Lipitor and Zetia. #3. Type II Diabetes: Has had no polyuria polyphagia or polydipsia. Has had no hypoglycemic like responses. No new history of any numbness, tingling, weakness or visual problems. No nausea, anorexia or other constitutional symptoms. There has been no foot problems or non healing lesions. The last HAIC was DCCT HAIC: 6.0 Calculated MB mg%. Average blood sugars 125-150 mg%. Checking sugars : several times a week Medication Types Include: Metformin, GLP-1, SGLT2 inhibitors and Insulin Secondary complications include none. Macro-vascular complications include none. Therapy reviewed regarding diabetic management and include Glucophage, Humalog, Jardiance, Lantus Solostar Pen and Ozempic Compliance: good Renal Protection: ERIK inhibitors Lipid management: statins Urinary microalbumin: A1 . Ophthalmological: has seen eye doctor within the last year #4. Hx of obesity. Currently Class 1 Obesity BMI 30-34.99. Has tried numerous dietary support and supplements with no benefit. Instructed on the health consequences of the obese status particularly cancer - diabetes and heart disease. Discussed new modalities of weight loss including GLP-1 medications that are used to treat diabetes. Potential candidate for bariatric surgery: No. Wishes to be evaluated by Dietary: No and was offered to be evaluated and instructed by voucher examiner on weight loss diet. Active Medication ListLasix 40 MG (TABLET - ORAL) DailyAspirin 325 MG One DailyGlucophage 1 GM (TABLET - ORAL) One Bid With Meals For DiabetesHumalog 100 UNITS/ ML (INJECTABLE - INJECTION) Sliding ScaleProscar 5 MG (TABLET - ORAL) One Daily For BphCoreg 25 MG (TABLET - ORAL) 25 Mg Am And 12.5 Mg PmCpap As DirectedOzempic 2 MG/1.5 ML (1.34 MG/ ML) (SOLUTION - SUBCUTANEOUS) 1 Mg WeeklyLotrel 10 MG-40 MG (CAPSULE - ORAL) One Daily For HtnLipitor 80 MG (TABLET - ORAL) Once DailyAtivan 1 MG (TABLET - ORAL) One Tid Prn For AnxietyLantus Solostar Pen 35 Untis At BedtimeVitamin C Take One DailyZetia 10 MG (TABLET - ORAL) One DailyJardiance 25 MG (TABLET - ORAL) One Daily Vaccination and Lvczthxuqxrj6065-37 Kuvfsnzue1664-95 Covid Nknwibp4677-10 Prevnar 13 Xf5364-54 Kfckonvom8544-66 H1n1 Surgical Igvlhbm6519-96 L4-L5 Vkslyr9990-44 Rt. Total Guje0056-07 Lt. Shoulder Zmsyapc6931-52 Rt. Arthroscopic Xuyj1745-42 Lt. Arthroscopic Vagy3691-59 Rt. Knee Katrpof0491-28 Tonsillectomy Preventative Dpdlitg0011/27/2023 ALBUMIN 4.3 G/DL N101/28/2023 HAIC 6.0 % OF TOTAL HGB H003/19/2023 MICRO ALBUMIN 1.5 MG/DL N1 PSA 0.12 NG/ML N003/01/2021 COLONOSCOPY (5 YEARS) 606/ DKJAOWOPC64/13/2013 FUBYKNXIIQCUH52/18/2006 CT THORAX Social HistorySOCIAL HISTORY:MarriedSmoking Hx: 2 packs of cigarettes per day for 10 years. Uori2234 Drinking Hx: One Pot of coffee per day, 1 Cup of teaper day, < 6 cans of soft drinks per day.Exercise: InfrequentlySexual Hx: Sexually ActiveOccupation: Superintendent Terminal Family HistoryFAMILY HISTORY:Mother 94 years oldFather 73 years old1 Sisters 1 LivingMother Hx: HTN, DM, DementiaFather Hx: HTN, ICH Jaiden Andrea MD [address] [facility], [address], [place], [address], [place] [facility] [employer] 03/24/2024 11:09:57 04/21/20 24 text/htm l Patient Name: Hans Harmon Of Service: Friday ( 04.21.2024 ): 1945 Age: 78 Vital Signs:Blood Pressure: Sitting Rt. Arm 128/76Pulse: Sitting 80 /min and RegularRespiratory Rate: 12Height 71 in or 1.8 mWeight 238 lb or 108.0 kgBMI 33.2Temperature: 98.1 F or 36.7 CPulse Oximetry: 96 % at rest on no oxygen Chief Complaint: Addressed in HPI Problems or conditions discussed in the HPI were the only ones reviewed during the encounter.Only social and family history addressed in the HPI were reviewed during this encounter. Attendant(s): NoneConstitutional and Systemic Symptoms:none Medication Reconciliation: from medication list. History of Present Illness #1. Fall approximately four days ago. At that time the patient was walking his dog tripped and fell. Fell on his left shoulder and chest wall. Apparently have radiographic studies performed which we do not have access to at this point. Currently doing well. Has shown considerable improvement. Still has some pain and discomfort in localized tenderness in the left lower chest wall. But is able to lift his arm much better than he did several days ago. Otherwise seems to be doing well.: Active Medication ListLasix 40 MG (TABLET - ORAL) DailyAspirin 325 MG One DailyGlucophage 1 GM (TABLET - ORAL) One Bid With Meals For DiabetesHumalog 100 UNITS/ ML (INJECTABLE - INJECTION) Sliding ScaleProscar 5 MG (TABLET - ORAL) One Daily For BphCoreg 25 MG (TABLET - ORAL) 25 Mg Am And 12.5 Mg PmCpap As DirectedOzempic 2 MG/1.5 ML (1.34 MG/ ML) (SOLUTION - SUBCUTANEOUS) 1 Mg WeeklyLotrel 10 MG-40 MG (CAPSULE - ORAL) One Daily For HtnLipitor 80 MG (TABLET - ORAL) Once DailyAtivan 1 MG (TABLET - ORAL) One Tid Prn For AnxietyLantus Solostar Pen 25 Untis At BedtimeVitamin C Take One DailyZetia 10 MG (TABLET - ORAL) One DailyJardiance 25 MG (TABLET - ORAL) One Daily Jaiden Andrea MD [address] [facility], [facility] [address], [place], [address], [facility] 04/21/2024 15:46:49 07/28/20 24 text/htm l Patient Name: Hans Harmon Of Service: Friday ( 07.28.2024 ): 1945 Age: 79 There has been approximately a 4 lb weight loss since 04/21/2024. This represents approximately a 1.7% change in weight. Weight change attributable to lifestyle changes. Vital Signs:Blood Pressure: Sitting Rt. Arm 116/72Pulse: Sitting 79 /min and RegularRespiratory Rate: 14Height 71 in or 1.8 mWeight 234 lb or 106.1 kgBMI 32.6Temperature: 97.4 F or 36.3 CDCCT HAIC: 6.8 Calculated MB mg%Pulse Oximetry: 96 % at rest on no oxygen Chief Complaint: Addressed in HPI Problems or conditions discussed in the HPI were the only ones reviewed during the encounter.Only social and family history addressed in the HPI were reviewed during this encounter. A significant, separate E/M service was performed to evaluate the current and new problems. Attendant(s): NoneConstitutional and Systemic Symptoms:none Medication Reconciliation: from medication list. Ogctqnonbyf49/12/2023: MRI of the lumbar spine without contrast demonstrates severe changes L4-L5 resulting in severe spinal canal stenosis and thecal sac compression. There is severe left neural foraminal narrowing at L3-L4 there is some moderate thecal sac compression due to epidural fat. Will need a neurosurgeon consult. History of Present Illness Reviewed the findings of the preventative health visit. Addressed all areas with the patient, patient's family or caregivers. Preventative examinations and testing immunizations - vaccinations, colonic neoplasm screening and PSA all reviewed and ordered where patient was amenable to the recommendations. Cognitive function was normal. Depression addressed and where necessary medications were adjusted or instituted. End of life and living will briefly discussed with patient and where these can be filled out and legally executed. Other blood and imaging studies were ordered if considered necessary. Other recommendations may be found in the encounter note. #1. Essential Hypertension: Stage: Stage I Interval Neurological Complaints no headaches, dizziness, weakness, visual changes, ataxia, aphasia and apraxia. No shortness of breath, orthopnea or cardiovascular symptoms. No other symptoms related to end organ damage. Pressure has been under excellent control. Currently normal. No other end organ symptoms or findings. Therapy reviewed regarding management of hypertension and includes salt restriction and Coreg and Lotrel. #2. Type II Hypercholesterolaemia: Currently taking medication and tolerating well. No interval complaints of any muscle pain or arthralgia. No significant liver changes with medications. Last lipid panel: excellent control. Therapy reviewed regarding treatment of cholesterol management and include diet and Lipitor and Zetia. #3. Type II Diabetes: Has had no polyuria polyphagia or polydipsia. Has had no hypoglycemic like responses. No new history of any numbness, tingling, weakness or visual problems. No nausea, anorexia or other constitutional symptoms. There has been no foot problems or non healing lesions. The last HAIC was DCCT HAIC: 6.8 Calculated MB mg%. Average blood sugars 125-150 mg%. Checking sugars : several times a week Medication Types Include: Metformin, GLP-1, SGLT2 inhibitors and Insulin Secondary complications include none. Macro-vascular complications include none. Therapy reviewed regarding diabetic management and include Glucophage, Humalog, Jardiance and Ozempic Compliance: excellent Renal Protection: ERIK inhibitors Lipid management: statins Urinary microalbumin: A1 . Ophthalmological: has seen eye doctor within the last year. Control: Good Control 6.2 - 7.0 #4. Colon polyps: Hx of colon polyps. No interval complaints of any bleeding or change in bowel habits. Last colonoscopy was three years ago. #5. Hx of obesity. Currently Class 1 Obesity BMI 30-34.99. Has tried numerous dietary support and supplements with no benefit. Instructed on the health consequences of the obese status particularly cancer - diabetes and heart disease. Discussed other modalities of weight loss no. Potential candidate for bariatric surgery: No. Wishes to be evaluated by Dietary: No and was offered to be evaluated and instructed by voucher examiner on weight loss diet. Active Medication ListLasix 40 MG (TABLET - ORAL) DailyAspirin 325 MG One DailyGlucophage 1 GM (TABLET - ORAL) One Bid With Meals For DiabetesHumalog 100 UNITS/ ML (INJECTABLE - INJECTION) Sliding ScaleProscar 5 MG (TABLET - ORAL) One Daily For BphCoreg 25 MG (TABLET - ORAL) 25 Mg Am And 12.5 Mg PmCpap As DirectedOzempic 2 MG/1.5 ML (1.34 MG/ ML) (SOLUTION - SUBCUTANEOUS) 2 Mg WeeklyLotrel 10 MG-40 MG (CAPSULE - ORAL) One Daily For HtnLipitor 80 MG (TABLET - ORAL) Once DailyAtivan 1 MG (TABLET - ORAL) One Tid Prn For AnxietyLantus Solostar Pen 25 Untis At BedtimeVitamin C Take One DailyZetia 10 MG (TABLET - ORAL) One DailyJardiance 25 MG (TABLET - ORAL) One Daily Vaccination and Decvkogfdyli2218-80 Mbsmpgibr6061-55 Covid Kfhkria6962-52 Prevnar 13 Km8080-70 Mombwrgig0527-16 H1n1 Surgical Gsvyxul1843-98 L4-L5 Pjyhcb3888-39 Rt. Total Twft7179-90 Lt. Shoulder Hmehnvj6387-39 Rt. Arthroscopic Dlyl3996-25 Lt. Arthroscopic Liwa6617-32 Rt. Knee Jnebvyy2610-63 Tonsillectomy Preventative Testing( ) 03/31/2024 PSA 0.14 NG/ML N 03/31/2026( ) 03/31/2024 HAIC 7.4 % OF TOTAL HGB H( ) 11/27/2023 Albumin 4.3 G/DL N( ) 03/19/2023 Micro Albumin 1.5 MG/DL N( ) 03/01/2021 Colonoscopy (5 Years) 03/01/2026( ) 05/26/2017 Optometry( ) 10/13/2013 Ophthalmology( ) 09/17/2006 CT Thorax Social HistorySOCIAL HISTORY:MarriedSmoking Hx: 2 packs of cigarettes per day for 10 years. [id number] Drinking Hx: One Pot of coffee per day, 1 Cup of teaper day, < 6 cans of soft drinks per day.Exercise: InfrequentlySexual Hx: Sexually ActiveOccupation: Superintendent [employer] Family HistoryFAMILY HISTORY:Mother 94 years oldFather 73 years old1 Sisters 1 LivingMother Hx: HTN, DM, DementiaFather Hx: HTN, ICH Jaiden Andrea MD [address] [facility], [facility] [address], [place], [address], [facility] [employer] 07/28/2024 11:29:38 12/22/19 25 text/htm l Patient Name: Hans CummingsLuxte Of Service: Friday ( 12.22.2024 ): 1945 Age: 79 There has been approximately a 2 lb weight gain since 07/28/2024. This represents approximately a .9% change in weight. Weight change attributable to lifestyle changes. Vital Signs:Blood Pressure: Sitting Rt. Arm 138/60Pulse: Sitting 74 /min and RegularRespiratory Rate: 16Height 70 in or 1.8 mWeight 236 lb or 107.0 kgBMI 33.9Temperature: 97 F or 36.1 CPulse Oximetry: 94 % at rest on no oxygen Chief Complaint: Addressed in HPI Problems or conditions discussed in the HPI were the only ones reviewed during the encounter.Only social and family history addressed in the HPI were reviewed during this encounter. Attendant(s): NoneConstitutional and Systemic Symptoms:none Medication Reconciliation: from medication list. Zxyqsfsyuvy47/12/2023: MRI of the lumbar spine without contrast demonstrates severe changes L4-L5 resulting in severe spinal canal stenosis and thecal sac compression. There is severe left neural foraminal narrowing at L3-L4 there is some moderate thecal sac compression due to epidural fat. History of Present Illness #1. Essential Hypertension: Stage: Stage I Interval Neurological Complaints no headaches, dizziness, weakness, visual changes, ataxia, aphasia and apraxia. No shortness of breath, orthopnea or cardiovascular symptoms. No other symptoms related to end organ damage. Pressure has been under excellent control. Currently normal. No other end organ symptoms or findings. Therapy reviewed regarding management of hypertension and includes salt restriction and Coreg and Lotrel. #2. Type II Hypercholesterolaemia: Currently taking medication and tolerating well. No interval complaints of any muscle pain or arthralgia. No significant liver changes with medications. Last lipid panel: fair control. Therapy reviewed regarding treatment of cholesterol management and include diet and Lipitor. #3. Type II Diabetes: Has had no. Has had DCCT HAIC: 7.4 Calculated MB mg% hypoglycemic like responses. No new history of any numbness, tingling, weakness or visual problems. No nausea, anorexia or other constitutional symptoms. There has been no foot problems or non healing lesions. The last HAIC was No. CGM: 125-150 mg%. Average blood sugars several times a week. Checking sugars : Metformin, GLP-1, SGLT2 inhibitors and Insulin. Medication Types Include: none Secondary complications include none. Macro-vascular complications include Glucophage, Humalog, Jardiance, Lantus Solostar Pen and Ozempic. Therapy reviewed regarding diabetic management and include good Compliance: ERIK inhibitors Renal Protection: statins Lipid management: A1 Urinary microalbumin: has seen eye doctor within the last year . Ophthalmological: Intermediate Control 7.1 - 8.0. Control: JESSICA #4. Sleep Apnea: Type: Using CPAP on nightly basis Current doing well. No significant daytime somnolence or problems performing daily chores. considerable improvement . Overall has shown 1.[place] Sleepiness ScaleSitting and ReadinWatching TV: 1Sitting Inactive in a Public Place: 1Passenger in a Car: 1Lying Down in Afternoon: 1Sitting and Talking to someone: 2Sitting quietly after lunch: 0In a car while stopped or drivin-9 Average amount of daytime sleepinessScore Interpretation: Class 1 Obesity BMI 30-34.99 #5. Hx of obesity. Currently currently using GLP-1 Inhibitors with diet and doing well. Has tried numerous dietary support and supplements with no benefit. Instructed on the health consequences of the obese status particularly cancer - diabetes and heart disease. Discussed other modalities of weight loss No . Potential candidate for bariatric surgery: No and was offered to be evaluated and instructed by voucher examiner on weight loss diet. Wishes to be evaluated by Dietary: No and was offered to be evaluated and instructed by voucher examiner on weight loss diet. Active Medication ListLasix 40 MG (TABLET - ORAL) DailyAspirin 325 MG One DailyGlucophage 1 GM (TABLET - ORAL) One Bid With Meals For DiabetesHumalog 100 UNITS/ ML (INJECTABLE - INJECTION) Sliding ScaleProscar 5 MG (TABLET - ORAL) One Daily For BphCoreg 25 MG (TABLET - ORAL) 25 Mg Am And 12.5 Mg PmCpap As DirectedOzempic 2 MG/1.5 ML (1.34 MG/ ML) (SOLUTION - SUBCUTANEOUS) 2 Mg WeeklyLotrel 10 MG-40 MG (CAPSULE - ORAL) One Daily For HtnLipitor 80 MG (TABLET - ORAL) Once DailyAtivan 1 MG (TABLET - ORAL) One Tid Prn For AnxietyLantus Solostar Pen 25 Untis At BedtimeVitamin C Take One DailyZetia 10 MG (TABLET - ORAL) One DailyJardiance 25 MG (TABLET - ORAL) One Daily Vaccination and Immunization(X) 2021- INFLUENZA( ) 2009- H1N1( ) 2011- PNEUMOVAX(X) 2013- PREVNAR 13 GC PREVNAR 20 Needed(X) 2020- COVID MODERNA Surgical Nhakaxy0446-16 L4-L5 Ukcyhq1960-11 Rt. Total Atpy3981-77 Lt. Shoulder Etdxknr6147-03 Rt. Arthroscopic Rxvo9066-40 Lt. Arthroscopic Tobu9271-25 Rt. Knee Kgcmbjc1530-71 Tonsillectomy Preventative Testing( ) 03/31/2024 PSA 0.14 NG/ML N 03/31/2026( ) 03/31/2024 HAIC 7.4 % OF TOTAL HGB H( ) 11/27/2023 Albumin 4.3 G/DL N( ) 03/19/2023 Micro Albumin 1.5 MG/DL N( ) 03/01/2021 Colonoscopy (5 Years) 03/01/2026( ) 05/26/2017 Optometry( ) 10/13/2013 Ophthalmology( ) 09/17/2006 CT Thorax Social HistorySOCIAL HISTORY:MarriedSmoking Hx: 2 packs of cigarettes per day for 10 years. [id number] Drinking Hx: One Pot of coffee per day, 1 Cup of teaper day, < 6 cans of soft drinks per day.Exercise: InfrequentlySexual Hx: Sexually ActiveOccupation: Superintendent [employer] Family HistoryFAMILY HISTORY:Mother 94 years oldFather 73 years old1 Sisters 1 LivingMother Hx: HTN, DM, DementiaFather Hx: HTN, ICH Active Medication ListLasix 40 MG (TABLET - ORAL) DailyAspirin 325 MG One DailyGlucophage 1 GM (TABLET - ORAL) One Bid With Meals For DiabetesHumalog 100 UNITS/ ML (INJECTABLE - INJECTION) Sliding ScaleProscar 5 MG (TABLET - ORAL) One Daily For BphCoreg 25 MG (TABLET - ORAL) 25 Mg Am And 12.5 Mg PmCpap As DirectedOzempic 2 MG/1.5 ML (1.34 MG/ ML) (SOLUTION - SUBCUTANEOUS) 2 Mg WeeklyLotrel 10 MG-40 MG (CAPSULE - ORAL) One Daily For HtnLipitor 80 MG (TABLET - ORAL) Once DailyAtivan 1 MG (TABLET - ORAL) One Tid Prn For AnxietyLantus Solostar Pen 25 Untis At BedtimeVitamin C Take One DailyZetia 10 MG (TABLET - ORAL) One DailyJardiance 25 MG (TABLET - ORAL) One Daily Vaccination and Immunization(X) 2021- INFLUENZA( ) 2009-12 H1N1( ) 2011- PNEUMOVAX(X) 2014-10 PREVNAR 13 GC PREVNAR 20 Needed(X) 2020- COVID MODERNA Surgical Yknlwya7840-15 L4-L5 Hjmfzt4477-59 Rt. Total Ultb8408-19 Lt. Shoulder Jbjcrdb4579-42 Rt. Arthroscopic Pcwl6695-13 Lt. Arthroscopic Gjzn5116-43 Rt. Knee Ldtnvef7830-61 Tonsillectomy Preventative Testing( ) 03/31/2024 PSA 0.14 NG/ML N 03/31/2026( ) 03/31/2024 HAIC 7.4 % OF TOTAL HGB H( ) 11/27/2023 Albumin 4.3 G/DL N( ) 03/19/2023 Micro Albumin 1.5 MG/DL N( ) 03/01/2021 Colonoscopy (5 Years) 03/01/2026( ) 05/26/2017 Optometry( ) 10/13/2013 Ophthalmology( ) 09/17/2006 CT Thorax Social HistorySOCIAL HISTORY:MarriedSmoking Hx: 2 packs of cigarettes per day for 10 years. [id number] Drinking Hx: One Pot of coffee per day, 1 Cup of teaper day, < 6 cans of soft drinks per day.Exercise: InfrequentlySexual Hx: Sexually ActiveOccupation: [employer] Family HistoryFAMILY HISTORY:Mother 94 years oldFather 73 years old1 Sisters 1 LivingMother Hx: HTN, DM, DementiaFather Hx: HTN, ICH TEST RESULT RANGE UNITSHEMOGLOBIN A1C Date: 03/31/2024HEMOGLOBIN A1C 7.4 <5.7 % OF TOTAL HGBLIPID PANEL, STANDARD Date: 03/31/2024HOLESTEROL, TOTAL 92 <200 MG/DLHDL CHOLESTEROL 43 > OR = 40 MG/DLTRIGLYCERIDES 58 <150 MG/DLLDL-CHOLESTEROL 36 MG/DL (CALC)PSA, TOTAL Date: 4PSA, TOTAL 0.14 < OR = 4.00 NG/ML Jaiden Andrea MD [address] [facility], [facility] [address], [place], [address], [place] [facility] 12/22/2024 11:15:00 04/27/20 25 text/htm l Patient Name: Hans Harmon Of Service: Friday ( 04.27.2025 ): 1945 Age: 79 There has been approximately a 2.5 lb weight loss since 12/22/2024. This represents approximately a 1.1% change in weight. Weight change attributable to lifestyle changes. Vital Signs:Blood Pressure: Sitting Rt. Arm 122/70Pulse: Sitting 76 /min and RegularRespiratory Rate: 18Height 70 in or 1.8 mWeight 233.5 lb or 105.9 kgBMI 33.5Temperature: 97 F or 36.1 CPulse Oximetry: 96 % at rest on no oxygen Chief Complaint: Balance problems Problems or conditions discussed in the HPI were the only ones reviewed during the encounter.Only social and family history addressed in the HPI were reviewed during this encounter. Attendant(s): NoneConstitutional and Systemic Symptoms:none Medication Reconciliation: from medication list. History of Present Illness #1. Essential Hypertension: Stage: Stage I Interval Neurological Complaints no headaches, dizziness, weakness, visual changes, ataxia, aphasia and apraxia. No shortness of breath, orthopnea or cardiovascular symptoms. No other symptoms related to end organ damage. Pressure has been under excellent control. Currently normal. No other end organ symptoms or findings. Therapy reviewed regarding management of hypertension and includes salt restriction and Coreg and Lotrel. #2. Type II Hypercholesterolaemia: Currently taking medication and tolerating well. No interval complaints of any muscle pain or arthralgia. No significant liver changes with medications. Last lipid panel: excellent control. Therapy reviewed regarding treatment of cholesterol management and include diet and Lipitor and Zetia. #3. Type II Diabetes: Has had no polyuria polyphagia or polydipsia. Has had no hypoglycemic like responses. No new history of any numbness, tingling, weakness or visual problems. No nausea, anorexia or other constitutional symptoms. There has been no foot problems or non healing lesions. The last HAIC was DCCT HAIC: 6.7 Calculated MB mg%. CGM: No. Average blood sugars 125-150 mg%. Checking sugars : several times a week. Medication Types Include: Metformin, GLP-1, SGLT2 inhibitors and Insulin Secondary complications include neuropathy. Macro-vascular complications include none. Therapy reviewed regarding diabetic management and include Glucophage, Humalog, Jardiance, Lantus Solostar Pen and Ozempic Compliance: good Renal Protection: ERIK inhibitors Lipid management: statins Urinary microalbumin: A1 . Ophthalmological: has seen eye doctor within the last year. Control: Good Control 6.2 - 7.0 #4. Neuropathy: History of neuropathy involving both legs. No interval complaints of any increasing numbness, tingling, weakness or ataxia. ADL: no limitations Number(s) of falls: one since last examination. Using support device: none Medication: medication. #5. Hx of obesity. Currently Class 1 Obesity BMI 30-34.99. Has tried numerous dietary support and supplements with no benefit. Instructed on the health consequences of the obese status particularly cancer - diabetes and heart disease. Discussed other modalities of weight loss no . Potential candidate for bariatric surgery: No. Wishes to be evaluated by Dietary: No and was offered to be evaluated and instructed by voucher examiner on weight loss diet. Active Medication ListLasix 40 MG (TABLET - ORAL) DailyAspirin 325 MG One DailyGlucophage 1 GM (TABLET - ORAL) One Bid With Meals For DiabetesHumalog 100 UNITS/ ML (INJECTABLE - INJECTION) Sliding ScaleProscar 5 MG (TABLET - ORAL) One Daily For BphCoreg 25 MG (TABLET - ORAL) 25 Mg Am And 12.5 Mg PmCpap As DirectedOzempic 2 MG/1.5 ML (1.34 MG/ ML) (SOLUTION - SUBCUTANEOUS) 2 Mg WeeklyLotrel 10 MG-40 MG (CAPSULE - ORAL) One Daily For HtnLipitor 80 MG (TABLET - ORAL) Once DailyAtivan 1 MG (TABLET - ORAL) One Tid Prn For AnxietyLantus Solostar Pen 25 Untis At BedtimeVitamin C Take One DailyZetia 10 MG (TABLET - ORAL) One DailyJardiance 25 MG (TABLET - ORAL) One Daily Vaccination and ImmunizationImmunizations and Vaccinations Discussed and Implemented if feasible In the Office. Else referred to pharmacies. (X) 2021- INFLUENZA( ) 2009- H1N1( ) 2011- PNEUMOVAX(X) 2013- PREVNAR 13 GC PREVNAR 20 Needed(X) 2020- COVID MODERNA Surgical Odmzwpb0828-59 L4-L5 Qvcoug3718-50 Rt. Total Ayly7817-29 Lt. Shoulder Jylbwca0600-56 Rt. Arthroscopic Wfgg7783-58 Lt. Arthroscopic Ggke7224-28 Rt. Knee Qsgyqsq5716-37 Tonsillectomy Preventative TestingPreventative Testing Discussed and Scheduled if Acceptable to Patient ( ) 12/28/2024 Albumin 4.5 G/DL H( ) 12/28/2024 Micro Albumin 37.5 MG/L H( ) 12/28/2024 HAIC 6.7 % H( ) 03/31/2024 PSA 0.14 NG/ML N 03/31/2026( ) 03/01/2021 Colonoscopy (5 Years) 03/01/2026( ) 05/26/2017 Optometry( ) 10/13/2013 Ophthalmology( ) 09/17/2006 CT Thorax Social HistorySOCIAL HISTORY:MarriedSmoking Hx: 2 packs of cigarettes per day for 10 years. [id number] Drinking Hx: One Pot of coffee per day, 1 Cup of teaper day, < 6 cans of soft drinks per day.Exercise: InfrequentlySexual Hx: Sexually ActiveOccupation: [employer] Family HistoryFAMILY HISTORY:Mother 94 years oldFather 73 years old1 Sisters 1 LivingMother Hx: HTN, DM, DementiaFather Hx: HTN, ICH TEST RESULT RANGE UNITSHEMOGLOBIN A1C Date: 12/28/2024HA1C 6.7 4.0-6.0 %LIPID PANEL Date: 12/28/2024HOLESTEROL 91 140-199 MG/DLTRIGLYCERIDES 58 0-150 MG/DLHDL CHOLESTEROL 47 40- MG/DLLDL CHOLESTEROL, CALCULATED 32 0-130 MG/DLCOMPREHENSIVE METABOLIC PANEL Date: 12/28/2024SODIUM 140 137-145 MMOL/LPOTASSIUM 4.4 3.5-5.1 MMOL/LGLUCOSE 122 70-99 MG/DLBUN 18 8-19 MG/DLCREATININE 0.67 0.66-1.25 MG/DLGFR >60ALKALINE PHOSPHATASE 69 38-126 U/LALANINE AMINOTRANSFERASE 28 0-50 U/LBILIRUBIN, TOTAL 0.80 0.20-1.30 MG/DLASPARTATE AMINOTRANSFERASE 31 15-46 U/LCALCIUM 9.3 8.4-10.2 MG/DLCBC/COMPLETE BLD COUNT W/DIFF Date: 12/28/2024WHITE BLOOD CELLS 8.1 4.2-10.8 X10'3/ULHEMOGLOBIN 16.0 13.2-17.0 G/DLHEMATOCRIT 47.6 39.3-50.0 %PLATELETS 297 150-400 X10'3/UL Jaiden Andrea MD [address] [facility] [address], [place], [address], [facility] 04/27/2025 11:25:03
--- OUTSIDE RECORDS SUMMARY | 2025-06-10 07:45 | XMS_ITS | Clinical Summary ---
Author Organization [facility] Address [address] [place] [address] Care Team Providers Care Product Safety Manager Name Role Phone Jaiden Andrea MD Primary Care Provider [phone] Allergies No known active allergies Medications semaglutide (OZEMPIC) 1 mg/dose injection (PEN)Indication s:Diabetes Mellitus Inject 1 mg into the skin once a week. Indications: Diabetes Takes on Friday 3 Active empagliflozin (JARDIANCE) 25 MG tabletIndicatio ns:Diabetes Mellitus Take 1 tablet (25 mg total) by mouth daily. Indications: Diabetes 3 Active insulin glargine (LANTUS SOLOSTAR) 100 UNIT/ML injection (PEN)Indication s:Diabetes Mellitus Inject 35 Units into the skin nightly at bedtime. Indications: Diabetes Active metFORMIN (GLUCOPHAGE) 500 MG tablet Take 1 tablet (500 mg total) by mouth 2 (two) times daily. 3 Active ezetimibe (ZETIA) 10 MG tabletIndicatio ns:Hyperchlorem ia Take 1 tablet by mouth daily. Indications: High Amount of Chloride in the Blood 3 Active atorvastatin (LIPITOR) 80 MG tabletIndicatio ns:Hyperchlorem ia Take 1 tablet by mouth nightly at bedtime. Indications: High Amount of Chloride in the Blood 3 Active carvedilol (COREG) 25 MG tabletIndicatio ns:Hypertension Take 1 tablet by mouth daily. Indications: High Blood Pressure Disorder Takes in the morning 3 Active carvedilol (COREG) 12.5 MG tabletIndicatio ns:Hypertension Take 1 tablet by mouth nightly. Indications: High Blood Pressure Disorder Active furosemide (LASIX) 40 MG tabletIndicatio ns:Fluid Retention Take 1 tablet by mouth daily. Indications: Fluid Retention 3 Active finasteride (PROSCAR) 5 MG tabletIndicatio ns:Urinary Retention Take 1 tablet by mouth daily. Indications: Urinary Retention 3 Active LORazepam (ATIVAN) 1 MG tabletIndicatio ns:Anxiety Take 1 tablet by mouth 3 (three) times daily as needed. Indications: Feeling Anxious 3 Active Cholecalciferol 100 MCG (4000 UT) TabIndications: Mineral Deficiency Take 10 mcg by mouth daily. Indications: Mineral Deficiency 3 Active amLODIPine Besy-Benazepril HCl 10-40 MG CapIndications: Hypertension Take 1 capsule by mouth daily. Indications: High Blood Pressure Disorder Active lidocaine (LIDODERM) 5 %Indications:Pa in Place 1 patch onto the skin daily. Indications: Pain 3 Active diclofenac sodium (VOLTAREN) 1 % gel APPLY 4 GM TO AFFECTED AREA(S) FOUR TIMES A DAY NEEDED DO NOT EXCEED MORE THAN 16 GRAMS DAILY TO ANY LOWER EXTREMITY JOINT. NOT MORE THAN 8 GRAMS DAILY TO ANY UPPER EXTREMITY JOINT. MAX 32GM/DAY OVER ALL JOINTS. (MEASURE DOSE WITH RULER ATTACHED INSIDE BOX) 3 Active HYDROcodone-julio cesar taminophen (NORCO) 5-325 MG tabletIndicatio ns:Acute Pain < 7 Day Supply,postop Take 1-2 tablets by mouth every 6 (six) hours as needed for Pain. Indications: Acute Pain < 7 Day Supply, postop 55 tablet 3 Active senna-docusate (SENOKOT-S) 8.6-50 MG tabletIndicatio ns:Constipation Take 1 tablet by mouth daily. 60 tablet 1 3 Active metFORMIN (GLUCOPHAGE) 1000 MG tabletIndicatio ns:Diabetes Mellitus Take 1,000 mg by mouth 2 (two) times daily with meals. Indications: Diabetes 3 Active Active Problems Problem Noted Date Diagnosed Date Spondylolisthesis at L4-L5 level 09/29/2023 Social History Tobacco Use Types Packs/Day Years Used Date Smoking Tobacco: Former Cigarettes 2 3 1 965 - 1967 Smokeless Tobacco: Never Tobacco Cessation:Counseling Given: Not Answered Alcohol Use Standard Drinks/Week Comments Not Currently 0 (1 standard drink = 0.6 oz pur e alcohol) OASIS D0700: Social Isolation Answer Da te Recorded Frequency of experiencing loneliness or isolatio n Never 10/21/2023 OASIS A1250: Transportation Answer Date Recorded Lack of Transportation (Medical) No 10/21/2023 Lack of Transportation (Non-Medical) No 10/21/2023 Patient Unable or Declines to Respond No 10/21/2023 OASIS B1300: Health Literacy Answer Guero e Recorded Frequency of needing help to read materials from doctor or pharmacy Never 10/21/2023 Humiliation, Afraid, Rape, and Kick questionnair e Answer Date Recorded Within the last year, have y ou been afraid of your partner or ex-partner? No 09/29/2023 Within the last year, have y ou been humiliated or emotionally abused in other ways by your partner or ex-partner? No Within the last year, have y ou been kicked, hit, slapped, or otherwise physically hurt by your partner or ex-partner? No 09/29/2023 Within the last year, have y ou been raped or forced to have any kind of sexual activity by your partner or ex-partner? No 09/29/2023 Social Connection and Isolation Panel [NHANES] A nswer Date Recorded In a typical week, how many times do you talk on the phone with family, friends, or neighbors? Patient declined 09/29/2023 How often do you get togethe r with friends or relatives? Patient declined 09/29/2023 How often do you attend taoism or jewish serv ices? Patient declined 09/29/2023 Do you belong to any clubs o r organizations such as taoism groups, unions, fraternal or athletic groups, or school groups? Patient declined 09/29/2023 How often do you attend meet ings of the clubs or organizations you belong to? Patient declined 09/29/2023 Are you , , di vorced, , never , or living with a partner? Patient declined 09/29/2023 AUDIT-C Answer Date Recorded Q1: How often do you have a drink containing alcohol? Never 09/29/2023 Q2: How many drinks containi ng alcohol do you have on a typical day when you are drinking? Patient does not drink Q3: How often do you have si x or more drinks on one occasion? Never 09/29/2023 Overall Financial Resource Strain (CARDIA) Answe r Date Recorded How hard is it for you to pa y for the very basics like food, housing, medical care, and heating? Not hard at all 09/29/2023 [facility] - Occupational Stress Questionnaire Answer Date Recorded Do you feel stress - tense, restless, nervous, or anxious, or unable to sleep at night because your mind is troubled all the time - these days? Not at all 09/29/2023 Exercise Vital Sign Answer Date Recorde d On average, how many days pe r week do you engage in moderate to strenuous exercise (like a brisk walk)? 0 days 09/29/2023 On average, how many minutes do you engage in exercise at this level? 0 min 09/29/2023 Hunger Vital Sign Answer Date Recorded Within the past 12 months, y ou worried that your food would run out before you got the money to buy more. Never true 09/29/20 23 Within the past 12 months, t he food you bought just didn't last and you didn't have money to get more. Never true 09/29/2023 PRAPARE - Transportation Answer Date Re corded In the past 12 months, has l ack of transportation kept you from medical appointments or from getting medications? No 09/02 In the past 12 months, has l ack of transportation kept you from meetings, work, or from getting things needed for daily living? No 09/29/2023 Housing Stability Vital Sign Answer Guero e Recorded In the last 12 months, was t here a time when you were not able to pay the mortgage or rent on time? No 09/29/2023 In the last 12 months, how many places have you lived? 1 09/29/2023 In the last 12 months, was t here a time when you did not have a steady place to sleep or slept in a fdc (including now)? No 09/29/2023 Sex and Gender Information Value Date Recorded Sex Assigned at Not on file Legal Sex Male 11:22 PM CDT Gender Identity Not on file Sexual Orientation Not on file Last Filed Vital Signs Vital Sign Reading Time Taken Comments Blood Pressure 110/60 10/21/2023 12:01 PM ENVIRONMENTAL HEALTH AND SAFETY MANAGER Pulse 81 10/21/2023 12:01 PM ENVIRONMENTAL HEALTH AND SAFETY MANAGER Temperature 36.8 C (98.2 F) 10/21/2023 12:01 PM ENVIRONMENTAL HEALTH AND SAFETY MANAGER Respiratory Rate 18 10/21/2023 12:01 PM ENVIRONMENTAL HEALTH AND SAFETY MANAGER Oxygen Saturation 98% 10/21/2023 12:01 PM ENVIRONMENTAL HEALTH AND SAFETY MANAGER Inhaled Oxygen Concentration - - Weight 108.9 kg (240 lb) 10/03/2023 9:20 AM CDT Height 177.8 cm (5' 10) 10/03/2023 9:20 AM CDT Body Mass Index 34.44 10/03/2023 9:20 AM CDT Plan of Treatment Health Maintenance Due Date Last Done Comments Hepatitis C 1963 Annual Medicare Wellness Visit 2012 RSV Immunization or 60+ Years (1 - 1-dose 75+ series) 2022 COVID-19 Vaccine ( season) 2024 09/20/2022, 03/31/2021, 03/01/2021, Additional history exists DTaP, Tdap and Td Vaccines (2 - Td or Tdap) 05/24/2026 05/24/2016 Pneumococcal Vaccine: 50+ Years Completed 07/02/2017, 12/31/2015, 11/17/2014, Additional history exists Zoster Vaccines Completed 01/26/2019, 01/2018, 06/27/2016 Meningococcal B Vaccine Aged Out No l onger eligible based on patient's age to complete this topic Meningococcal Vaccine Aged Out No sofia ayush eligible based on patient's age to complete this topic RSV Immunizations Under 20 Months Aged Out No longer eligible based on patient's age to complete this topic Goals Goal Patient Goal Type Associated Problems Recent Progress Patient-Stated? Author Family - family caregiver with be involved in care transitions and discharge planning Lifestyle No Jorge Gates, RN Medical Devices Implanted Type Area Commercial Kitchen Service Technician Device Identifier Shelf Expiration Date Model / Serial / Lot Body Top Loading Implanted:Qty: 4 on 09/29/2023 by Moi Rubin MD at [facility] N/A: Spine Lumbar ORTHOFIX [id number] / / Set Screw Implanted:Qty: 4 on 09/29/2023 by Moi Rubin MD at [facility] N/A: Spine Lumbar ORTHOFIX 36-2000 / / 6.5 X 55 Mm Screw Implanted:Qty: 3 on 09/29/2023 by Moi Rubin MD at [facility] N/A: Spine Lumbar ORTHOFIX [id number] / / 6.5 X 50mm Screw Implanted:Qty: 1 on 09/29/2023 by Moi Rubin MD at [facility] N/A: Spine Lumbar ORTHOFIX [id number] / / F3d Straight Lumbar 26mm X 10mm - 7* Implanted:Qty: 1 on 09/29/2023 by Moi Rubin MD at [facility] N/A: Spine Lumbar NEW AGE MEDICAL 06/14/2028 [id number] / / [id number] Description:CORELINK Rods 50mm Rods Implanted:Qty: 2 on 09/29/2023 by Moi Rubin MD at [facility] N/A: Spine Lumbar ORTHOFIX [id number] / / Insurance [employer] Advance Directives * Full Code (Latest Code Status on File) Date Activated Date Inactivated Comments 10/28/2023 3:44 PM * DNR Date Activated Date Inactivated Comments 10/03/2023 10:14 AM 10/03/2023 12:20 PM * Full Code Date Activated Date Inactivated Comments 10/03/2023 10:07 AM 10/03/2023 10:14 AM * Full Code Date Activated Date Inactivated Comments 09/29/2023 2:04 PM 10/01/2023 1:30 PM Care Teams Product Safety Manager Relationship Specialty Start Date End Date Jaiden Andrea MD [address] [address] PCP - General INTERNAL MEDICINE 09/10/23
--- OUTSIDE RECORDS SUMMARY | 2025-06-10 07:45 | XMS_ITS | Continuity of Care Document ---
Author Organization [facility] Address [address] [place] [address] [place] [address] Phone Care Team Providers Care Commissioned Sales Associate Name Role Phone Jos Angulo Unavailable Unavailable Procedures Procedure Date Office/outpatient Visit, Est Office/outpatient Visit, Est Office/outpatient Visit, Est Advance Directives Directive Yes / No Effective Date File Name No Information Encounters Encounter Description Practice Location Reason(s) For Visit Diagnoses Date Provider Providers Copied on Encounter Office/outpat ient Visit, [facility], [address] [place] [address] [address], [place], [place], [id number], tel:[phone] [facility] No Information 9-201 0 Kev Arguello. [address] [facility] , [address], [place], [place], [facility], . tel:[phone] Office/outpat ient Visit, [facility], [address] [place] [address] [address], [place], [place], [id number], [place] tel:[phone] [facility] [place] No Information 0-200 8 Doicheryl Arguello. [address] [facility] , [address], [place], [address], [place]. tel:[phone] Office/outpat ient Visit, [facility], [address] [place] [address] [address], [place], [place], [id number], [place] tel:[phone] [facility] No Information Oct-1 5-200 7 Kev Arguello. [address] [facility] , [address], [place], [address], [place]. tel:[phone] Family History Family Member Type Diagnosis Age At Onset No Information Payers Payer name Insurance type Covered constitution party ID Authoriza tion(s) No Information Social History Type Description Quantity Date Captured Comments Sex Male Smoking Status No Information Chief Complaint And Reason For Visit No Information Reason For Referral Reason For Referral No Information History Of Present Illness Encounter Date Complaint History Of Prese nt Illness No Information Functional Status Date Functional Assessmen t No Information Instructions Date Instruction Additional Infor mation No Information Assessments Type Assessment Date No Information Patient Care Teams Name Effective Dates (start - stop) Status Members No Information
--- OUTSIDE RECORDS SUMMARY | 2025-06-10 07:45 | XMS_ITS | Clinical Summary ---
Author Organization [facility] Address [address] [place] [address] Care Team Providers Care Vp Mobile Products Name Role Phone Jaiden Andrea MD Primary Care Provider [phone] Source Comments [facility],non-owned Affiliates and Associated Physician Practices is amultiple site organization consisting of ambulatory clinics and hospital sitesin [place], [place], [place] and [place]. This disclosure is being madepursuant to the Care Everywhere program and may not contain all information available regarding this patient. 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 Gender Identity Not on file Sexual Orientation Not on file Plan of Treatment Health Maintenance Due Date Last Done Comments HEPATITIS C SCREENING [birth year]05/1963 DTAP/TDAP/TD VACCINES (1 - Tdap) 1966 PNEUMOCOCCAL VACCINE 50+ (1 of 1 - PCV) 1997 ZOSTER VACCINE (1 of 2) 1997 Respiratory Syncytial Virus (RSV) Vaccine Pt: or over 60 yrs (1 - 1-dose 75+ series) 2022 COVID-19 VACCINE ( - 2023-2 5 season) 2024 DEPRESSION SCREENING 12/01/2024 INFLUENZA VACCINE (Season Ended) 2025 HEPATITIS B VACCINE Aged Out No longe r eligible based on patient's age to complete this topic HIB VACCINE Aged Out No longer eligi ble based on patient's age to complete this topic HPV VACCINE Aged Out No longer eligi ble based on patient's age to complete this topic MENINGOCOCCAL (Group B) VACC INE SHARED DECISION-MAKING Aged Out No longer eligibl e based on patient's age to complete this topic MENINGOCOCCAL GROUPS A/C/Y/W VACCINE Aged Out No longer eligible b ased on patient's age to complete this topic Insurance A[employer] Care Teams Vp Mobile Products Relationship Specialty Start Date End Date Jaiden Andrea MD [address] [place] [address] [address] [place] [address] PCP - General 01/17/12
== END 2025-06-10 07:41 | disposition home or self-care (01) ==
PROVIDERS: PCP Neurological Surgery; Visit Provider Internal Medicine
DX: M48.07 Spinal stenosis, lumbosacral region (principal); M47.896 Other spondylosis, lumbar region; Z98.1 Arthrodesis status
CPT/HCPCS: 72148